=== PATIENT | female | born 1985 | race Caucasian/White ===

== ENCOUNTER 2020-02-20 15:27 | Observation (INO) | payer OTHER, SELFPAY ==
--- NOTE | 2020-02-20 15:27 | OBADM ---
This patient, Sharmin Aguero, admitted to the OB room OB Post 116 for observation. Patient/family oriented to hospital policies and general routines including ID bracelet, bed and alarms, visiting hours, pain management, procedures, bathroom and other care routines, personal items, smoking policy, room service/diet, and visiting hours. Patient/Family are encouraged to report perceived risks to care and to ask questions if they do not understand what they are told or what they should do.
[2020-02-20 15:48] VITALS: BP 117/56; PULSE 83
[2020-02-20 15:50] VITALS: RESP 18; TEMP 36.8
--- NOTE | 2020-02-20 15:53 | PC.NURSE ---
Dr. Silva called and given report on patient presentation and complaint of intermittent contractions. Orders received.
[2020-02-20 16:27] LABS: Add Urine Microscopic? YES; Appearance Urine Cloudy (Clear); Bacteria Urine Trace /hpf; Bilirubin Urine Negative (Negative); Blood Urine Negative (Negative); Color Urine Yellow (Yellow); Glucose Urine UA Negative (Negative); Ketones Urine 1+ mg/dL (Negative); Leukocyte Esterase Ur 2+ LEU/UL (Negative); Mucus Urine Rare /lpf; Nitrate Urine Negative (Negative); Protein Urine Negative (Negative); RBC Urine 0-2 /hpf (0-2); Specific Grav Ur 1.012 (1.001-1.035); Squamous Epithelial Cell Urine Occasional /hpf (Few); Urobilinogen Urine Negative mg/dL (<2.0); WBC Urine 0-3 /hpf
[2020-02-20 16:32] VITALS: BMI 24.2
--- NOTE | 2020-02-20 16:42 | PC.NURSE ---
Dr. Silva notified regarding increase in contraction pattern. Orders received.
[2020-02-20] MEDS: TERBUTALINE SULFATE 1 MG/ML VIAL 0.25 MG SUB-Q ×2 (17:15→17:45)
--- NOTE | 2020-02-20 17:26 | PC.NURSE ---
Dr. Silva updated regarding interventions performed. Orders received.
[2020-02-20 17:59] LABS: Fetal Fibronectin Negative
--- NOTE | 2020-02-20 18:51 | WPDOBADMIT ---
Obstetrics - Admit Note Admission Note: 34 y/o G1 at 32 weeks here with cramping. Noted to have contractions. Contractions have improved with terbutaline and PO fluids. No bleeding. Good movement. AVSS NST reactive TOCO: contractions every 3-6 min, now rare. ABD soft, nontender, gravid EXT nontender Cervix closed. UA 1+ketones FFN neg. A: IUP at 32 weeks with contractions, FFN neg. P: Home to f/u 2 days in office.
== END 2020-02-20 19:35 | disposition home or self-care (01) ==
PROVIDERS: Admitting Provider Obstetrics & Gynecology; Visit Provider Obstetrics & Gynecology
DX: O26.893 Other specified pregnancy related conditions, third trimester (principal); R10.9 Unspecified abdominal pain; Z3A.32 32 weeks gestation of pregnancy
CPT/HCPCS: 81001; 82731; 96372; G0378; G0379; J3105

== ENCOUNTER 2020-04-15 05:00 | Inpatient (IN) | payer OTHER, SELFPAY ==
[2020-04-15] VITALS (108 sets, daily range): BP systolic 61–191; BP diastolic 32–159; PULSE 58–187; RESP 16–20; TEMP 36.4–37.3; O2SAT 96–100; BMI 25.9
--- NOTE | 2020-04-15 05:40 | LDADM ---
This patient, Sharmin Aguero, was admitted to Labor/Delivery/Recovery 106 on 04/15/20 at 05:00. Plans for labor, pain management and were discussed with patient. Patient/family oriented to hospital policies and general routines including ID bracelet, bed and alarms, visiting hours, pain management, procedures, bathroom and other care routines, personal items, smoking policy, room service/diet and guest tray routines, security routines, and visiting hours. Patient/Family are encouraged to report perceived risks to care and to ask questions if they do not understand what they are told or what they should do. See OBIX for further documentation.
[2020-04-15 05:58] LABS: Basophils Percent Auto 0.2 % (0.2-1.2); Eosinophils Absolute Auto 0.1 K/mm3 (0-0.3); Eosinophils Percent Auto 0.4 % (0-4.4); Hematocrit 38.4 % (37.0-47.0); Hemoglobin 13.3 g/dL (12.0-15.0); Immature Granulocyte Absolute 0.12 K/mm3 (0.00-0.031); Lymphocytes Absolute Auto 1.67 K/mm3 (0.9-3.2); Lymphocytes Percent Auto 13.6 % (18.3-44.2); Mean Corpuscular HGB Conc 34.6 g/dl (32-36); Mean Corpuscular Hemoglobin 31.2 pg (26-34); Mean Corpuscular Volume 90.1 fl (80-100); Mean Platelet Volume 9.7 fl (7.4-10.4); Monocytes Absolute Auto 0.9 K/mm3 (0.1-0.6); Neutrophils Absolute Auto 9.6 K/mm3 (1.3-6.7); Neutrophils Percent Auto 77.8 % (45.5-73.1); Platelet Count Result 183 k/mm3 (150-375); Red Blood Count 4.26 M/mm3 (4.2-5.4); Red Cell Distribution Width 13.3 % (11.5-14.5); White Blood Count 12.3 K/mm3 (4.5-10.0)
[2020-04-15] MEDS: OXYTOCIN 30 UNITS/NS 500 ML 30 UNITS/500 ML BAG 6 UNITS IV CONT (06:09)
[2020-04-15] MEDS: LACTATED RINGERS 1,000 ML 125 ML IV CONT ×2 (06:09→16:17)
--- NOTE | 2020-04-15 09:00 | WPDOBADMIT ---
Obstetrics - Admit Note Admission Note: record reviewed. Additions to the history and/or subsequent changes in the physical findings follow. 35 y/o G1 at 40 3/7 weeks here for scheduled induction of labor. EFW 6#8oz 5 weeks ago. GBS neg. IVF with transfer of care in second trimester. Has vaginismus, and exams have been challenging. Paradoxically, she does not desire any pain control during labor. contractions were treated with Procardia, but she has been off that medication for several weeks now. AVSS NST reactive TOCO: contractions every 2-4 min ABD soft, nontender, gravid, vertex EXT nontender Cervix 2-3/80/-1. AROM with clear fluid. IUPC placed. A: IUP at 40 3/7 weeks with EFW around 9 lbs, here desiring induction of labor. complicated by vaginismus. P: Oxytocin. Anticipate .
--- NOTE | 2020-04-15 09:59 | WPDANESEPP ---
Anes - Eval Pre Procedure Procedure: Labor epidural Date/Time: 04/15/20 09:59 Surgeon: Shira Preop Diagnosis: pain during labor Pre Op Diagnosis: Induction of Labor Patient Data Age: 35 Gender: F Height: 1.68 m Weight: 73 kg Last Vital Signs Temp 36.6 C 04/15/20 05:28 Pulse 85 04/15/20 09:01 BP 100/66 04/15/20 09:01 Allergies Allergy/AdvReac Type Severity Reaction Status Date / Time No Known Drug Allergies Allergy Other Verified 02/20/20 16:30 Home Medications Medication Instructions Recorded Confirmed Type Vitamin 1 tablet PO DAILY 02/20/20 03/16/20 History cholecalciferol (vitamin D3) 25 mcg PO DAILY 03/16/20 03/16/20 History [Vitamin D3] Laboratory Tests 04/15/20 04/15/20 04/15/20 05:52 05:52 05:52 WBC 12.3 K/mm3 H K/mm3 (4.5-10.0) RBC 4.26 M/mm3 M/mm3 (4.2-5.4) Hgb 13.3 g/dL g/dL (12.0-15.0) Hct 38.4 % % (37.0-47.0) MCV 90.1 fl fl (80-100) MCH 31.2 pg pg (26-34) MCHC 34.6 g/dl g/dl (32-36) RDW 13.3 % % (11.5-14.5) Plt Count 183 k/mm3 k/mm3 (150-375) MPV 9.7 fl fl (7.4-10.4) Immature Gran % (Auto) 1.0 % H % (0-0.5) Neut % (Auto) 77.8 % H % (45.5-73.1) Lymph % (Auto) 13.6 % L % (18.3-44.2) [place] % (Auto) 7.0 % % (2.6-8.5) Eos % (Auto) 0.4 % % (0-4.4) Baso % (Auto) 0.2 % % (0.2-1.2) Lymph # (Auto) 1.67 K/mm3 K/mm3 (0.9-3.2) [place] # (Auto) 0.9 K/mm3 H K/mm3 (0.1-0.6) Eos # (Auto) 0.1 K/mm3 K/mm3 (0-0.3) Baso # (Auto) 0.0 K/mm3 K/mm3 (0.0-0.1) Abs Immat Gran (auto) 0.12 K/mm3 H K/mm3 (0.00-0.031) Absolute Neuts (auto) 9.6 K/mm3 H K/mm3 (1.3-6.7) Absolute Nucleated RBC 0.0 K/mm3 K/mm3 (0.0-0.012) Nucleated RBC % 0.0 % % (0.0-0.2) RPR Pending Blood Type O Positive Antibody Screen Negative Patient hx anesthesia problems: none Family hx anesthesia problems: none PMFSH Family History Family History Father Polio Father Heart disease Social History Social History Smoking status: Never smoker Second hand tobacco smoke exposure: No Substance use: never Gender identity (if verbalized by the patient): Female Spiritual care concerns: No Exam Day of Procedure 04/15/20 09:59
[2020-04-15] MEDS: fentaNYL CITRATE INJ (*CRX) 100 MCG/2 ML VIAL 50 MCG IV PUSH (16:32)
[2020-04-15] MEDS: ONDANSETRON INJ 4 MG/2 ML VIAL IV PUSH (17:28)
--- NOTE | 2020-04-15 19:06 | PM.OBPNLAB ---
Pain Control Date/time seen: 04/15/20 19:06 Comments: Good pain control with epidural. Pelvic Exam Dilation (cm): 6 Effacement (%): 90 station: 0 Contractions Contraction frequency: 3 Status Comments: NST reactive TOCO: contractions every 3-6 min Assessment and Plan Pitocin rate (mU/min): 3 Comments: Continue oxytocin.
--- NOTE | 2020-04-15 20:10 | PM.OBPNLAB ---
Pain Control Date/time seen: 04/15/20 20:10 Comments: Called to see patient after a 7 min fhr deceleration. Pelvic Exam Dilation (cm): 7 Effacement (%): 90 station: 0 Status Comments: NST: fhr has recovered. Now with moderate variability and no decelerations. TOCO: irregular contractions Assessment and Plan Pitocin rate (mU/min): 0 Comments: A: IUP at 40 3/7 weeks with nonreassuring status remote from delivery P: I offered primary delivery. She understands risks of surgery to include risks of anesthesia, risks of pain, infection, bleeding, blood products, thromboembolic phenomena and damage to adjacent structures such as bowel, bladder, ureters, blood vessels and nerves. She understands all these risks and elects to proceed with surgery.
--- NOTE | 2020-04-15 20:16 | PM.IMHP ---
H&P: HPI History of Present Illness Date/Time: 04/15/20 20:16 Chief complaint: Induction of Labor Narrative: 35 y/o G1 at 40 3/7 weeks here for induction of labor. complicated by vaginismus. Has had oxytocin induction through the day today with slow progress. Now comfortable with epidural. Had a FHR deceleration for 7 min, responded to resuscitation efforts, including one dose of terbutaline 0.25 mg sc. Now would like to proceed with due to nonreassuring status remote from delivery. Review of Systems Review of Systems: All systems reviewed & are unremarkable except as noted in HPI and below PMFSH Past Medical History Medical History Anxiety GERD (gastroesophageal reflux disease) Vaginismus Surgical History Surgical History History of tonsillectomy Family History Family History Father Polio Father Heart disease Social History Social History Smoking status: Never smoker Second hand tobacco smoke exposure: No Substance use: never Gender identity (if verbalized by the patient): Female Spiritual care concerns: No Meds Home Medications and Allergies Home Medications Medication Instructions Recorded Confirmed Type Vitamin 1 tablet PO DAILY 02/20/20 03/16/20 History cholecalciferol (vitamin D3) 25 mcg PO DAILY 03/16/20 03/16/20 History [Vitamin D3] Allergies Allergy/AdvReac Type Severity Reaction Status Date / Time No Known Drug Allergies Allergy Other Verified 02/20/20 16:30 Vital Signs Vital Signs - 24 hr 04/15/20 05:28 04/15/20 05:55 04/15/20 06:01 Temperature 36.6 C Pulse Rate 82 77 Blood Pressure 107/54 L 103/60 Pulse Oximetry 04/15/20 06:31 04/15/20 07:01 04/15/20 08:01 Temperature Pulse Rate 85 81 80 Blood Pressure 97/71 L 104/67 117/68 Pulse Oximetry 04/15/20 08:31 04/15/20 09:01 04/15/20 10:16 Temperature Pulse Rate 88 85 83 Blood Pressure 103/65 100/66 117/72 Pulse Oximetry 04/15/20 11:30 04/15/20 13:11 04/15/20 13:16 Temperature 36.4 C L Pulse Rate 77 73 Blood Pressure 99/59 L 96/57 L Pulse Oximetry 04/15/20 14:01 04/15/20 14:28 04/15/20 14:31 Temperature Pulse Rate 85 90 85 Blood Pressure 116/81 118/76 93/76 L Pulse Oximetry 04/15/20 15:16 04/15/20 15:30 04/15/20 16:02 Temperature 36.7 C Pulse Rate 104 H 80 Blood Pressure 97/53 L 61/32 L Pulse Oximetry 04/15/20 16:29 04/15/20 16:34 04/15/20 16:35 Temperature Pulse Rate 92 Blood Pressure 104/66 Pulse Oximetry 100 100 04/15/20 16:37 04/15/20 16:39 04/15/20 16:41 Temperature Pulse Rate 163 H 134 H Blood Pressure 103/79 107/71 Pulse Oximetry 100 04/15/20 16:43 04/15/20 16:44 04/15/20 16:47 Temperature Pulse Rate 88 95 Blood Pressure 114/70 105/55 L Pulse Oximetry 100 04/15/20 16:49 04/15/20 16:51 04/15/20 16:54 Temperature Pulse Rate 76 Blood Pressure 115/71 Pulse Oximetry 100 100 04/15/20 16:59 04/15/20 17:01 04/15/20 17:04 Temperature Pulse Rate 187 H Blood Pressure 110/71 Pulse Oximetry 100 100 04/15/20 17:09 04/15/20 17:11 04/15/20 17:14 Temperature Pulse Rate 83 Blood Pressure 115/70 Pulse Oximetry 100 99 04/15/20 17:19 04/15/20 17:21 04/15/20 17:24 Temperature Pulse Rate 80 Blood Pressure 104/64 Pulse Oximetry 99 100 04/15/20 17:29 04/15/20 17:31 04/15/20 17:34 Temperature Pulse Rate 176 H Blood Pressure 96/80 L Pulse Oximetry 98 99 04/15/20 17:39 04/15/20 17:40 04/15/20 17:41 Temperature 36.7 C Pulse Rate 70 Blood Pressure 107/70 Pulse Oximetry 99 04/15/20 17:44 04/15/20 17:49 04/15/20 17:54 Temperature Pulse Rate Blood Pressure Puls
--- NOTE | 2020-04-15 20:23 | WPDANESEFPP ---
Anes - Eval Final PreProcedure Day of Procedure 04/15/20 20:23 Patient weight: overweight Heart: regular rate and rhythm Lungs: clear to auscultation and normal air movement Airway: Mallampati scale class II Neurological: alert and oriented Last oral intake: >/= 8 hours ASA classification: II Emergent: yes Anesthetic plan: proceed Anesthesia type and monitoring: regional epidural and standard monitoring Informed Consent: The patient's anesthetic plan and its attendant risks and benefits were discussed with the patient/family/POA. Questions were solicited and answers provided to the satisfaction of the patient/family/POA.
--- NOTE | 2020-04-15 21:22 | PM.OBPRVD ---
OB - Delivery Note Procedure Delivery date: 04/15/20 Procedure: Procedures Operation Date: 04/15/20 20:30 <No data on this case meets the specified criteria> Primary low transverse delivery Induction method: AROM and per pitocin protocol Delivery monitor: external FHT, external uterine, internal FHT and internal uterine Route of delivery: Indication for instrumentation: nonreassuring FHR tracing Specimen: Yes (cord blood, placenta) Quantitative Blood Loss: 755 Anesthesia type: Epidural Disposition: PACU Complications: None Narrative: The patient was taken to the operating room where she was prepared and draped in the usual sterile fashion in dorsal supine position with a leftward tilt. She received cefazolin preoperatively. Epidural anesthesia was found to be adequate. A Pfannenstiel skin incision was made and carried through to the underlying layer of the fascia. The fascia was incised in the midline and the incision was extended laterally. The fascia was dissected free of the underlying rectus muscles. The rectus muscles were in the midline. The peritoneum was identified, tented up and entered sharply. The peritoneal incision was extended superiorly and inferiorly with good visualization of the bladder. The bladder blade was placed. The vesicouterine peritoneum was identified, tented up and entered sharply. The incision was extended laterally and the bladder flap was developed. The bladder blade was replaced. The uterus was then incised sharply in a transverse fashion along the lower uterine segment. Thickly meconium stained fluid was encountered. The incision was extended laterally. The infant's head was delivered atraumatically to the sterile field, followed by the body. The nose and mouth were bulb suctioned. After a delay, the cord was clamped and cut. The was handed off the field. Cord blood was collected. The placenta was removed manually and was passed off the field. The uterus was exteriorized and cleared of all clots and debris. The uterine incision was reapproximated using 0 Monocryl in a running, locked fashion. A second, imbricating layer of the same suture was placed. Excellent hemostasis resulted as did excellent reapproximation of the normal anatomy. The uterus was returned the abdomen. The pelvis was irrigated copiously with warmed normal saline. Hemaderm was applied to the bladder flap. Rigorous hemostasis was assured. The fascial layer was reapproximated using 0 Vicryl in a running fashion. The skin was closed with a running, subcuticular stitch of 4 0 Vicryl. Dermaflex was applied externally. Sponge, lap, needle and instrument counts were correct. The patient was taken to the recovery room in stable condition. The went to the nursery in stable condition. I was present and scrubbed the entire procedure. [place] Baby Date of : 04/15/20 Time of : 20:48 Weeks of gestation at delivery: 40 Infant gender: Male Weight (pounds): 8 Weight (ounces): 13 presentation: vertex Placenta delivery description: Manual Removal and Abnormal Configuration (accessory placental lobule) cord vessel description: 3 Vessels score one minute: 6 score five minutes: 9
--- NOTE | 2020-04-15 21:27 | P.DS_ITS ---
DS: Admitting Diagnosis Admitting Diagnosis Admitting Diagnosis: Induction of Labor DS: Discharge Diagnosis Discharge Diagnosis (1) Status post primary low transverse section: Code(s): Z98.891 - History of uterine scar from previous surgery Status: Acute OB - DS: Summary OB Procedures : None OB Procedures Intrapartum: OB Procedures: : None Peripartum Data Procedures: Procedures Operation Date: 04/15/20 20:30 <No data on this case meets the specified criteria> Primary LTCS DS: Data Data Completed and Pending Labs on day of discharge: Labs from last 24 hours 04/15/20 04/15/20 04/15/20 05:52 05:52 05:52 WBC 12.3 H RBC 4.26 Hgb 13.3 Hct 38.4 MCV 90.1 MCH 31.2 MCHC 34.6 RDW 13.3 Plt Count 183 MPV 9.7 Immature Gran % (Auto) 1.0 H Neut % (Auto) 77.8 H Lymph % (Auto) 13.6 L [place] % (Auto) 7.0 Eos % (Auto) 0.4 Baso % (Auto) 0.2 Lymph # (Auto) 1.67 [place] # (Auto) 0.9 H Eos # (Auto) 0.1 Baso # (Auto) 0.0 Abs Immat Gran (auto) 0.12 H Absolute Neuts (auto) 9.6 H Absolute Nucleated RBC 0.0 Nucleated RBC % 0.0 RPR Pending Blood Type O Positive Antibody Screen Negative Discharge Plan Discharge Attending physician on discharge: Brian Silva Discharging Clinician: Brain Silva Patient Disposition: Home, Self-Care Activity: may shower, may drive after 2 weeks and pelvic rest Diet: regular Wound Care Instructions: incision open to air Discharge Instructions: Call or return if temperature above 100.4? F, increased abdominal pain, increased vaginal bleeding or any new problems. Stand Alone Forms: General Discharge Information Follow-up/Referrals: Brian Silva MD [Physician] - 4 Weeks Discharge Medications: New ibuprofen 600 mg tablet 600 mg PO Q6H PRN (Reason: cramps) Qty: 30 RF: 0 ferrous sulfate 325 mg (65 mg iron) tablet 325 mg PO DAILY Qty: 30 RF: 0 hydrocodone-acetaminophen [[place]] 5-325 mg tablet 1 - 2 tablet PO Q6H PRN (Reason: pain) Qty: 30 RF: 0 No Action Vitamin 27 mg iron- 800 mcg Tablet 1 tablet PO DAILY RF: 0 cholecalciferol (vitamin D3) [Vitamin D3] 25 mcg (1,000 unit) Capsule 25 mcg PO DAILY RF: 0 Date of admission: 04/15/20 05:00 Primary Care Provider: Iban,Kathi Admitting Provider: Brian Silva Attending physician on admission: Brian Silva Condition: Stable
[2020-04-15] MEDS: MORPHINE SULFATE (*CRX) 2 MG/ML INJ IV PUSH ×2 (23:01→23:47)
--- NOTE | 2020-04-15 23:57 | OBPPTRN ---
Patient transferred to post room #290 via stretcher with infant in crib. Support person present. Oriented to unit, room, information board, rooming in, admission packet and security measures. Patient verbalizes understanding.
[2020-04-16] VITALS (11 sets, daily range): BP systolic 93–123; BP diastolic 48–71; PULSE 87–103; RESP 14–20; TEMP 36.4–37.2; O2SAT 98–100
[2020-04-16] MEDS: DEXTROSE 5%/0.45% SOD CHL 1,000 ML 125 ML IV CONT (03:27)
[2020-04-16] MEDS: IBUPROFEN 600 MG TABLET PO ×3 (04:49→17:43)
[2020-04-16] MEDS: HYDROcodone/acetaminophen (*CRX) 5-325 MG TABLET 1 TAB PO ×2 (04:49→07:51)
[2020-04-16] MEDS: SIMETHICONE 80 MG TAB.CHEW PO ×3 (04:52→17:44)
[2020-04-16 05:07] LABS: Basophils Percent Auto 0.2 % (0.2-1.2); Eosinophils Absolute Auto 0.1 K/mm3 (0-0.3); Eosinophils Percent Auto 0.3 % (0-4.4); Hemoglobin 9.7 g/dL (12.0-15.0); Immature Granulocyte Absolute 0.13 K/mm3 (0.00-0.031); Immature Granulocyte Percent A 0.7 % (0-0.5); Lymphocytes Percent Auto 6.1 % (18.3-44.2); Mean Corpuscular HGB Conc 33.4 g/dl (32-36); Mean Corpuscular Hemoglobin 30.8 pg (26-34); Mean Corpuscular Volume 92.1 fl (80-100); Mean Platelet Volume 9.7 fl (7.4-10.4); Monocytes Percent Auto 5.2 % (2.6-8.5); Neutrophils Absolute Auto 17.3 K/mm3 (1.3-6.7); Neutrophils Percent Auto 87.5 % (45.5-73.1); Platelet Count Result 147 k/mm3 (150-375); Red Blood Count 3.15 M/mm3 (4.2-5.4); Red Cell Distribution Width 13.5 % (11.5-14.5); White Blood Count 19.7 K/mm3 (4.5-10.0)
--- NOTE | 2020-04-16 07:45 | PC.NURSE ---
Edidural discontinued. Pt. tolerated well. Tip noted, bandaid applied.
[2020-04-16] MEDS: POLYSACCHARIDE IRON COMPLEX 150 MG CAPSULE PO ×2 (07:50→17:42)
[2020-04-16] MEDS: MULTIVIT/MIN/PREN/FOL AC/IRON TABLET 1 TAB PO (07:50)
[2020-04-16] MEDS: DOCUSATE SODIUM 100 MG CAPSULE PO ×2 (07:51→17:42)
--- NOTE | 2020-04-16 07:53 | WPDANLDNPN2 ---
Anes-Prog Note L&D-Neuraxial Date/Time: 04/16/20 07:53 Neuraxial medications: epidural PF morphine Opiod-related complaints: none Patient feedback: Patient satisfied with post-operative pain management.
--- NOTE | 2020-04-16 07:53 | WPDANLDPN2 ---
Anes-Prog Note L&D Date/Time: 04/16/20 07:53 Comfortable throughout: labor, delivery and section Neuraxial method: epidural Epidural/Spinal procedure site: clean & non-tender Neuro status: Neuro function grossly intact. Cardiovascular status: normal Respiratory status: normal Airway patency: baseline Mental status: baseline Post-Op hydration status: normal Vital Signs: Last Vital Signs Temp 36.9 C 04/16/20 04:05 Pulse 88 04/16/20 04:05 Resp 16 04/16/20 04:05 BP 105/61 04/16/20 04:05 Pulse Ox 98 04/16/20 02:30 Pain score (VAS): 0 I/O: Intake & Output 04/15/20 04/15/20 04/16/20 15:59 23:59 07:59 Intake Total 1000 300 Output Total 100 310 Balance 1000 -100 -10 Post-procedural complaints: none Patient feedback: Patient satisfied with anesthetic care.
[2020-04-16 10:14] LABS: Rapid Plasma Reagin Non-Reactive (NonReactive)
[2020-04-16] MEDS: HYDROcodone/acetaminophen (*CRX) 10-325 MG TABLET 1 TAB PO ×2 (11:08→17:43)
--- NOTE | 2020-04-16 13:44 | PM.OBPNVD ---
OB - PN: Subj Subjective Date/time seen: 04/16/20 13:44 Narrative: Pain OK. Tolerating diet. Would like circumcision for son. She thinks her anxiety is stable and would not like any treatment at this time. She does not feel sad. No suicidal or homicidal ideation. OB - PN: Obj Data Labs CBC & Chem 7: 04/16/20 04:43 Labs: Laboratory Results - last 24 hr 04/15/20 04/16/20 05:52 04:43 WBC 19.7 H RBC 3.15 L Hgb 9.7 L D Hct 29.0 L MCV 92.1 MCH 30.8 MCHC 33.4 RDW 13.5 Plt Count 147 L MPV 9.7 Immature Gran % (Auto) 0.7 H Neut % (Auto) 87.5 H Lymph % (Auto) 6.[address] [place] % (Auto) 5.2 Eos % (Auto) 0.3 Baso % (Auto) 0.2 Lymph # (Auto) 1.20 [place] # (Auto) 1.0 H Eos # (Auto) 0.1 Baso # (Auto) 0.0 Abs Immat Gran (auto) 0.13 H Absolute Neuts (auto) 17.3 H Absolute Nucleated RBC 0.0 Nucleated RBC % 0.0 RPR Non-reactive OB - PN A/P Plan Comments: A: POD#1, doing well. P: Routine care. Reviewed circumcision. Exam Narrative: Exam Narrative: AVSS I/O OK ABD soft, nontender, fundus firm. Incision c/d/i. EXT nontender
[2020-04-17] MEDS: HYDROcodone/acetaminophen (*CRX) 10-325 MG TABLET 1 TAB PO ×5 (00:11→19:56)
[2020-04-17] MEDS: IBUPROFEN 600 MG TABLET PO ×4 (00:11→19:57)
[2020-04-17] MEDS: SIMETHICONE 80 MG TAB.CHEW PO ×4 (00:11→20:36)
--- NOTE | 2020-04-17 04:00 | PC.NURSE ---
RN started pt on 15 program. has had minimal interest in latching and pt has expressed concerns about milk supply. RN and pt discussed the benefits of -, and pt verbalized understanding of use of pump.
[2020-04-17] MEDS: MULTIVIT/MIN/PREN/FOL AC/IRON TABLET 1 TAB PO (07:06)
[2020-04-17] MEDS: POLYSACCHARIDE IRON COMPLEX 150 MG CAPSULE PO (07:07)
[2020-04-17] MEDS: LANOLIN (LANSINOH) 7.5 GM CREAM 1 APPLIC TOPICAL (07:08)
[2020-04-17 08:20] VITALS: BP 100/55; PULSE 100; RESP 16; TEMP 36.5; O2SAT 100
--- NOTE | 2020-04-17 08:28 | PM.OBPNVD ---
OB - PN: Subj Subjective Date/time seen: 04/17/20 08:28 Narrative: Pain OK. Tolerating diet. OB - PN: Obj Data Labs CBC & Chem 7: 04/16/20 04:43 Labs: Laboratory Results - last 24 hr 04/15/20 05:52 RPR Non-reactive OB - PN A/P Plan Comments: A: POD#2, doing well. P: Routine care. Exam Narrative: Exam Narrative: AVSS I/O OK ABD soft, nontender, fundus firm. Incision c/d/i. EXT nontender
[2020-04-17] MEDS: DOCUSATE SODIUM 100 MG CAPSULE PO (17:42)
[2020-04-17 20:00] VITALS: BP 103/52; PULSE 97; RESP 18; TEMP 36.8; O2SAT 100
[2020-04-17] MEDS: WITCH HAZEL 40 PADS 1 PAD (21:59)
[2020-04-17] MEDS: BENZOCAINE 20% AER SPR (*SP) 56 GM CAN 1 SPRAY (21:59)
[2020-04-17] MEDS: HYDROcodone/acetaminophen (*CRX) 5-325 MG TABLET 1 TAB PO (23:35)
[2020-04-18] MEDS: SIMETHICONE 80 MG TAB.CHEW PO ×5 (03:17→20:09)
[2020-04-18] MEDS: IBUPROFEN 600 MG TABLET PO ×4 (03:18→22:33)
[2020-04-18] MEDS: HYDROcodone/acetaminophen (*CRX) 5-325 MG TABLET 1 TAB PO ×5 (03:18→20:07)
--- NOTE | 2020-04-18 07:30 | PC.NURSE ---
Mother called out for assist with feeding, reporting difficulties with latch. Mother states is more awake since last evening, mother continues to supplement after all feedings and will pump. Mother voices concerns she is not pumping more than a few drops, assured mother this is normal and milk should transition in within the next few days. Parents feel is fussy after supplement and continues to act hungry. Suggested to increase supplement to 30 mls and to wake to feed every 4 hours and increase pumping to 20 minutes. Reviewed infant feeding cues, frequencies, duration of feedings, feeding elimination flow sheet, and signs of adequate intake. Demonstrated stimulation techniques to wake for feeding. Assisted with to breast. Reviewed positioning/alignment in cross cradle, holding breast in U hold and guided asymmetrical latch on. Several attempts before was able to latch correctly. nursed eagerly with steady draws for short bursts followed with long pausing, occasional swallowing noted. Reviewed signs of a correct latch, effective nursing and suck swallow ratio. was able to maintain latch without discomfort to mother. Nipple care reviewed. Infant is more awake and eagerly feeding than previous day. Suggested to stimulate while feeding to keep infant awake and nursing effectively for increased intake and to assist with maintaining deep latch. Demonstrated how to adjust latch more deeply while feeding. Instructed mother to call out for RN assistance if she is unable to latch infant for feeding or she has discomfort with nursing. Instructed feeding should be initiated three hours from start of last feeding or if feeding cues are noted before. Mother voiced understanding of information shared.
[2020-04-18] MEDS: DOCUSATE SODIUM 100 MG CAPSULE PO ×2 (08:49→17:40)
[2020-04-18] MEDS: MULTIVIT/MIN/PREN/FOL AC/IRON TABLET 1 TAB PO (08:49)
[2020-04-18] MEDS: POLYSACCHARIDE IRON COMPLEX 150 MG CAPSULE PO ×2 (08:49→17:40)
[2020-04-18 08:50] VITALS: BP 90/57; PULSE 98; RESP 18; TEMP 36.3; O2SAT 100
--- NOTE | 2020-04-18 12:20 | PM.OBPNVD ---
OB - PN: Subj Subjective Date/time seen: 04/18/20 12:20 Narrative: Pain OK. Tolerating diet. OB - PN: Obj Data Labs CBC & Chem 7: 04/16/20 04:43 OB - PN A/P Plan Comments: A: POD#3, doing well. P: Plan home tomorrow. Exam Narrative: Exam Narrative: AVSS ABD soft, nontender, fundus firm. Incision c/d/i. EXT nontender
[2020-04-18 19:40] VITALS: BP 112/61; PULSE 65; RESP 18; TEMP 36.8; O2SAT 100
[2020-04-18 23:15] VITALS: BP 126/64; PULSE 117; RESP 18; TEMP 36.7; O2SAT 99
[2020-04-19] MEDS: HYDROcodone/acetaminophen (*CRX) 5-325 MG TABLET 1 TAB PO (00:30)
[2020-04-19] MEDS: IBUPROFEN 600 MG TABLET PO ×2 (05:43→12:37)
[2020-04-19] MEDS: SIMETHICONE 80 MG TAB.CHEW PO ×3 (05:44→12:45)
[2020-04-19 08:05] VITALS: BP 101/63; PULSE 109; RESP 16; TEMP 37.6; O2SAT 100
--- NOTE | 2020-04-19 08:12 | WPDANLDPN2 ---
Anes-Prog Note L&D Date/Time: 04/19/20 08:12 Comfortable throughout: labor, delivery and section Neuraxial method: epidural Epidural/Spinal procedure site: clean & non-tender Neuro status: Neuro function grossly intact. Cardiovascular status: normal Respiratory status: normal Airway patency: baseline Mental status: baseline Post-Op hydration status: normal Vital Signs: Last Vital Signs Temp 36.7 C 04/18/20 23:15 Pulse 117 H 04/18/20 23:15 Resp 18 04/18/20 23:15 BP 126/64 04/18/20 23:15 Pulse Ox 99 04/18/20 23:15 Pain score (VAS): 3 I/O: Intake & Output 04/18/20 04/19/20 04/19/20 23:59 07:59 15:59 Intake Total 240 Balance 240 Post-procedural complaints: none Patient feedback: Patient satisfied with anesthetic care.
--- NOTE | 2020-04-19 08:55 | PC.NURSE ---
Patient viewed the discharge video Mother & Baby Care, The First Two Weeks . Patient was given the opportunity and encouraged to ask questions. Patient verbalized understanding of information shared and has been given the mother/baby guide for home reference.
[2020-04-19] MEDS: DOCUSATE SODIUM 100 MG CAPSULE PO (09:13)
[2020-04-19] MEDS: MULTIVIT/MIN/PREN/FOL AC/IRON TABLET 1 TAB PO (09:13)
[2020-04-19] MEDS: POLYSACCHARIDE IRON COMPLEX 150 MG CAPSULE PO (09:13)
--- NOTE | 2020-04-19 09:15 | PC.NURSE ---
Mother is able to independently latch infant with appropriate positioning/alignment. She denies any nipple discomfort, is feeding as required and waking to feed if needed. Mother continues to supplement after all feedings and will follow with pumping. Mother is pumping without difficulties or discomfort and is not pumping 2-3 mls per session. Advised to francy EBM as part of supplement. is currently meeting outcomes for weight, output, jaundice and feeding frequencies. Mother states she feels confident to continue current feeding plan at home. Reviewed transition to breast milk, signs of adequate intake, and engorgement/relief. Instructed to call ICP if intake/output less than required. Reviewed regular medications mother is taking. Information provided per Maricel. Discussed when to increase supplementation and signs infant may be ready to decrease supplement. Advised not to discontinue supplement until seen by follow up RN or ICP advises. Reviewed community resources on the [facility] website and in the Mom/Baby guide. Information on outpatient services provided. Mother has no further questions at this time.
[2020-04-22 09:29] VITALS: BP 100/58; PULSE 104; RESP 20; TEMP 36.5; O2SAT 100
--- NOTE | 2020-05-16 17:11 | PC.NURSE ---
Patient called stating that she was having trouble with sore nipples and getting a deep latch. Mom states is gaining weight well, just had an appt with the b2b sales professional and having 6-8 voids and stools per day. Appt made for 1--21 to have latch assessed.
== END 2020-04-19 14:18 | disposition home or self-care (01) | DRG 788 ==
LOC: ANHLDR 21:29 → ANHOB2 04-16 00:15
PROVIDERS: Admitting Provider Obstetrics & Gynecology; PCP Physician Assistant; Visit Provider Obstetrics & Gynecology
PROC: 10D00Z1 Extraction of Products of Conception, Low, Open Approach (ICD-10-PCS; CPT 59514; principal; 2020-04-15 20:30)
DX: O76 Abnormality in fetal heart rate and rhythm complicating labor and delivery (principal); O43.193 Other malformation of placenta, third trimester; N94.2 Vaginismus; O77.0 Labor and delivery complicated by meconium in amniotic fluid; Z3A.40 40 weeks gestation of pregnancy; Z37.0 Single live birth
CPT/HCPCS: 36415; 85025; 86592; 86850; 86900; 86901; 88307; A9270; J0131; J1200; J1885; J2270; J2274; J2370; J2405; J2590; J2795; J3010; J7120

== ENCOUNTER 2020-05-20 11:20 | Outpatient (RCR) | payer OTHER, SELFPAY ==
--- NOTE | 2020-05-21 13:27 | PC.NURSE ---
05/20/2020 1120 pt seen for LC consult; mother expresses help with latch on issues for baby, and sore nipples; also concern that she feels her milk supply is less in the evening, as baby is more fussy from about 8pm to 2 a.m.; Pt delivered baby concepción Rodrigues on 04/15/2020; she had a c/s after laboring, baby's heart rate dropped. Also reports difficult delivery of head even with the . Baby is now 5 weeks of age; he appears well cared for, is active and alert today when undressed for feeding. Baby was last seen by Dr. Reyes on 05/15/2020; exam and weight at that time, one month old, normal and appropriate. Mother reports that at the one week check up baby's weight was not where wanted it, and then they increased breast feeding and did supplement; Mother has been doing some pumping. Parents report 8 breast feedings in the last 24 hrs, and feedings are 23-25 minutes, 14 wet diapers and 3 yellow seedy stools. They voice concern that baby is very fussy in the evening. They feed, hold, walk with him; they report he is gassy. Mother reports sore nipples, and wants help with latching. Baby put to breast in cross-cradle position; reviewed with mother [id number] latch on technique and how to assess for deep latch; mother had latch on pain initially, but reports it eased quickly. She reports the latch as deeper than what she is able to get at home. Mother taught how to adjust infant to deeper latch once on the breast. Baby demonstrated rhythmic vigorous sucking and swallowing. After 10 minutes he fell asleep, and also had a yellow seedy stool. Baby weighed after the first side, 4856 gms Baby nursed second side in football position, again latching easily with apparent deep latch, reported by mom as comfortable, and demonstrated effective breast feeding, again for 10 minutes; baby had another large yellow seedy stool, and wet diaper. Mother reported remembering learning some of the latch on techniques while in the hospital, and appreciated the teaching today. Weight after second side, 4871. Baby was awake, and very contented after the feeding. Plan: mother will continue to breast feeding, working on latch for deeper more comfortable latch. Suggested mother do some pumping after breast feedings, especially in afternoon and evening to attempt to increase her milk supply at that time. Advised oK to supplement at any feeding that he seems to still be hungry, using pumped breast milk and/or formula. Suggested if baby's marked fussiness in the evening continues, to call Dr Reyes and discuss. Suggested weight check for baby next week, to reassure mother that baby is gaining appropriately. Mother verbalized understanding of all information shared and agreed with the plan. She was encouraged to call LC again as needed.
--- NOTE | 2020-05-21 14:03 | PC.NURSE ---
05/21/2020 Phone call to mother. She reports still continued difficulty with latching. She was not tearful, but stress still sensed in mom. She states last evening she breast fed and gave formula and he seemed to be a little less fussy last evening. Mother verbalized desire to keep going with breast feeding. She will continue with the plan from yesterday. Nurse did suggest referring to Mother-baby Guide, and trying side-lying position to see if latch on might be easier. Parents did report that they will be seeing PT for baby because of decreased ROM since delivery. Yesterday baby seemed comfortable in cross cradle on Mother's L side, and football on mother's R side. Pt will call as needed to office.
== END 2020-07-22 08:38 | disposition home or self-care (01) ==
LOC: ANHOBOP 11:20
PROVIDERS: PCP Pediatrics; Visit Provider Pediatrics
DX: Z39.1 Encounter for care and examination of lactating mother (principal)
CPT/HCPCS: 99213; G0463

== ENCOUNTER 2022-01-27 09:07 | Observation (INO) | payer BC, SELFPAY ==
[2022-01-27] VITALS (7 sets, daily range): BP systolic 90–105; BP diastolic 18–68; PULSE 97–105; TEMP 36.6; O2SAT 100; BMI 25.4
[2022-01-27 09:45] LABS: Appearance Urine Clear (Clear); Bilirubin Urine Negative (Negative); Blood Urine Negative (Negative); Color Urine Yellow (Yellow); Glucose Urine UA Negative (Negative); Ketones Urine 4+ mg/dL (Negative); Leukocyte Esterase Ur Negative LEU/UL (NEGATIVE); Nitrate Urine Negative (Negative); Protein Urine Negative (Negative); Specific Grav Ur 1.015 (1.001-1.035); Urobilinogen Urine 0.2 mg/dL (<2.0); pH Urine 6.5 (5.0-9.0)
[2022-01-27 09:50] LABS: Bacteria Urine Trace /hpf; RBC Urine 0-2 /hpf (0-2); Squamous Epithelial Cell Urine Occasional /hpf (Few); WBC Urine 0-3 /hpf (0-3)
[2022-01-27 09:52] LABS: Add Urine Microscopic? YES
--- NOTE | 2022-01-27 10:03 | PC.NURSE ---
Dr Silva notified of adm c/o contractions, exposure to covid and fever and contractions last night. Orders received.
[2022-01-27] MEDS: DEXTROSE 5%/LACTATED RINGERS 1,000 ML 999 ML IV CONT (10:50)
[2022-01-27 11:02] LABS: Basophils Percent Auto 0.3 % (0.2-1.2); Eosinophils Percent Auto 0.1 % (0-4.4); Hematocrit 36.5 % (37.0-47.0); Hemoglobin 12.1 g/dL (12.0-15.0); Immature Granulocyte Absolute 0.14 K/mm3 (0.00-0.031); Immature Granulocyte Percent A 1.5 % (0-0.5); Immature Platelet Fraction Pct 2.2 % (0.9-11.2); Lymphocytes Absolute Auto 0.53 K/mm3 (0.9-3.2); Lymphocytes Percent Auto 5.8 % (18.3-44.2); Mean Corpuscular HGB Conc 33.2 g/dl (32-36); Mean Corpuscular Hemoglobin 30.2 pg (26-34); Mean Platelet Volume 9.3 fl (7.4-10.4); Monocytes Absolute Auto 0.7 K/mm3 (0.1-0.6); Neutrophils Absolute Auto 7.7 K/mm3 (1.3-6.7); Neutrophils Percent Auto 84.3 % (45.5-73.1); Platelet Count Result 150 k/mm3 (150-375); Red Blood Count 4.01 M/mm3 (4.2-5.4); Red Cell Distribution Width 14.3 % (11.5-14.5); White Blood Count 9.1 K/mm3 (4.5-10.0)
[2022-01-27 11:40] LABS: SARS-CoV-2 RNA PCR Positive
--- NOTE | 2022-02-04 14:42 | P.PNOB_ITS ---
OB - Triage/Final Diagnosis Visit Information Comments/Additional reasons for admission: I have assessed the risk for this patient, Sharmin Aguero, and determined that she would benefit from observation care. Evaluation Laboratory results: Laboratory Tests 01/27/22 01/27/22 01/27/22 09:31 10:47 10:47 WBC 9.1 RBC 4.01 L Hgb 12.1 Hct 36.5 L MCV 91.0 MCH 30.2 MCHC 33.2 RDW 14.3 Plt Count 150 MPV 9.3 Immature Gran % (Auto) 1.5 H Neut % (Auto) 84.3 H Lymph % (Auto) 5.8 L [place] % (Auto) 8.0 Eos % (Auto) 0.1 Baso % (Auto) 0.3 Lymph # (Auto) 0.53 L [place] # (Auto) 0.7 H Eos # (Auto) 0.0 Baso # (Auto) 0.0 Abs Immat Gran (auto) 0.14 H Absolute Neuts (auto) 7.7 H Absolute Nucleated RBC 0.0 Nucleated RBC % 0.0 % Immature Plt Fraction 2.2 Urine Color Yellow Urine Appearance Clear Urine pH 6.5 Ur Specific [place] 1.015 Urine Protein Negative Urine Glucose (UA) Negative Urine Ketones 4+ H Ur Blood (Man) Negative Urine Nitrate Negative Urine Bilirubin Negative Urine Urobilinogen 0.2 Ur Leukocyte Esterase Negative Urine RBC 0-2 Urine WBC 0-3 Ur Squamous Epith Cells Occasional Urine Bacteria Trace SARS-CoV-2 RNA (RT-PCR) Positive A Final Diagnosis (1) False labor: Code(s): O47.9 - False labor, unspecified Status: Acute
== END 2022-01-27 15:27 | disposition home or self-care (01) ==
PROVIDERS: Admitting Provider Obstetrics & Gynecology; Visit Provider Obstetrics & Gynecology
DX: O47.03 False labor before 37 completed weeks of gestation, third trimester (principal); O98.513 Other viral diseases complicating pregnancy, third trimester; U07.1 COVID-19; Z3A.30 30 weeks gestation of pregnancy
CPT/HCPCS: 36415; 81001; 85025; 85055; 87086; 87088; 87147; C9803; G0378; G0379; J7121; U0003; U0005

== ENCOUNTER 2022-03-22 01:23 | Inpatient (IN) | payer BC, SELFPAY ==
--- NOTE | 2022-03-06 14:10 | PC.NURSE ---
Verified with OR schedule and patient--C/S on 03/25/22 ar 1200
[2022-03-22] VITALS (41 sets, daily range): BP systolic 86–145; BP diastolic 44–81; PULSE 78–103; RESP 16–18; TEMP 36–36.9; O2SAT 96–100; BMI 29.5
[2022-03-22 01:10] LABS: Basophils Absolute Auto 0.1 K/mm3 (0.0-0.1); Basophils Percent Auto 0.4 % (0.2-1.2); Eosinophils Absolute Auto 0.1 K/mm3 (0-0.3); Eosinophils Percent Auto 0.7 % (0-4.4); Hematocrit 38.8 % (37.0-47.0); Immature Granulocyte Absolute 0.13 K/mm3 (0.00-0.031); Lymphocytes Absolute Auto 2.28 K/mm3 (0.9-3.2); Lymphocytes Percent Auto 17.6 % (18.3-44.2); Mean Corpuscular HGB Conc 33.5 g/dl (32-36); Mean Corpuscular Hemoglobin 29.8 pg (26-34); Mean Platelet Volume 9.7 fl (7.4-10.4); Monocytes Absolute Auto 0.9 K/mm3 (0.1-0.6); Monocytes Percent Auto 6.9 % (2.6-8.5); Neutrophils Absolute Auto 9.5 K/mm3 (1.3-6.7); Neutrophils Percent Auto 73.4 % (45.5-73.1); Platelet Count Result 181 k/mm3 (150-375); Red Blood Count 4.36 M/mm3 (4.2-5.4); Red Cell Distribution Width 14.5 % (11.5-14.5); White Blood Count 12.9 K/mm3 (4.5-10.0)
[2022-03-22] MEDS: LACTATED RINGERS 1,000 ML 125 ML IV CONT (01:30)
--- NOTE | 2022-03-22 01:30 | PM.IMHP ---
H&P: HPI History of Present Illness Date/Time: 03/22/22 01:30 Chief Complaint: Ruptured membranes at term Narrative: this is a 29-year-old conceived via IVF with prior with complaints of spontaneous vaginal delivery prior to admission. Her appears to unremarkable except for an abnormal GCT with normal 3hour. [facility] Past Medical History Medical History (Updated 03/22/22 @ 01:33 [employer] by Ed Ledesma MD) Anxiety GERD (gastroesophageal reflux disease) PIH ( induced hypertension) Vaginismus Surgical History Surgical History (Updated 04/15/20 @ 21:28 by Brian Silva MD) History of tonsillectomy Family History Family History (Updated 03/06/22 @ 13:45 by Johny Chase RN) Father Polio Heart disease Mother Fibromyalgia Grandparent Breast cancer in female Hypertension Social History Social History Smoking status: Never smoker Second hand tobacco smoke exposure: No Substance use: never Gender identity (if verbalized by the patient): Female Spiritual care concerns: No Meds Home Medications and Allergies Home Medications Medication Instructions Recorded Confirmed Type vits no.124-ferrous fum 1 tablet PO DAILY 02/20/20 03/16/20 History 27 mg iron-folic acid 800 mcg tablet ( Vitamin) nifedipine 10 mg capsule 10 mg PO Q6H PRN Cramps 03/06/22 03/06/22 History Allergies Allergy/AdvReac Type Severity Reaction Status Date / Time No Known Drug Allergies Allergy Other Verified 03/06/22 13:39 Vital Signs Vital Signs - 24 hr 03/22/22 01:24 [employer] Pulse Rate 78 Blood Pressure 112/65 Exam Const: General: cooperative, healthy appearing and comfortable Nutritional Appearance: overweight Orientation/consciousness: oriented to person, oriented to place and oriented to time HENMT: Head: normal to inspection Resp: Effort & Inspection: normal respiratory effort GI: Inspection: normal to inspection : External Female Exam: normal external appearance Speculum Exam - Vagina: normal appearance of the vagina Speculum Exam - Cervix: normal appearance of the cervix ( Clear fluid is seen with contractions every 4minutes. heart tones ) H&P: Results Labs Labs: Short CBC 03/22/22 Range/Units 01:04 [employer] WBC 12.9 H (4.5-10.0) K/mm3 Hgb 13.0 (12.0-15.0) g/dL Hct 38.8 (37.0-47.0) % Plt Count 181 (150-375) k/mm3 Assessment and Plan Assessment and plan (1) Status post primary low transverse section: Code(s): Z98.891 - History of uterine scar from previous surgery Status: Acute (2) Spontaneous rupture of membranes: Status: Acute Plan a repeat low-transverse
--- NOTE | 2022-03-22 01:31 | WPDANESEPP ---
Anes - Eval Pre Procedure Procedure: Operation Date: 03/25/22 12:00 Proposed Procedures p Repeat Section - Brian Silva MD Date/Time: 03/22/22 01:31 Surgeon: randal Pre Op Diagnosis: SROM Patient Data Age: 37 Gender: F Height: 1.68 m Weight: 83 kg Last Vital Signs Pulse 81 03/22/22 01:31 PULP PRESS TENDER BP 122/65 03/22/22 01:31 PULP PRESS TENDER Allergies Allergy/AdvReac Type Severity Reaction Status Date / Time No Known Drug Allergies Allergy Other Verified 03/06/22 13:39 Home Medications Medication Instructions Recorded Confirmed Type vits no.124-ferrous fum 1 tablet PO DAILY 02/20/20 03/16/20 History 27 mg iron-folic acid 800 mcg tablet ( Vitamin) nifedipine 10 mg capsule 10 mg PO Q6H PRN Cramps 03/06/22 03/06/22 History Laboratory Tests 03/22/22 03/22/22 03/22/22 01:04 PULP PRESS TENDER 01:04 PULP PRESS TENDER 01:04 PULP PRESS TENDER WBC 12.9 K/mm3 H K/mm3 (4.5-10.0) RBC 4.36 M/mm3 M/mm3 (4.2-5.4) Hgb 13.0 g/dL g/dL (12.0-15.0) Hct 38.8 % % (37.0-47.0) MCV 89.0 fl fl (80-100) MCH 29.8 pg pg (26-34) MCHC 33.5 g/dl g/dl (32-36) RDW 14.5 % % (11.5-14.5) Plt Count 181 k/mm3 k/mm3 (150-375) MPV 9.7 fl fl (7.4-10.4) Immature Gran % (Auto) 1.0 % H % (0-0.5) Neut % (Auto) 73.4 % H % (45.5-73.1) Lymph % (Auto) 17.6 % L % (18.3-44.2) [place] % (Auto) 6.9 % % (2.6-8.5) Eos % (Auto) 0.7 % % (0-4.4) Baso % (Auto) 0.4 % % (0.2-1.2) Lymph # (Auto) 2.28 K/mm3 K/mm3 (0.9-3.2) [place] # (Auto) 0.9 K/mm3 H K/mm3 (0.1-0.6) Eos # (Auto) 0.1 K/mm3 K/mm3 (0-0.3) Baso # (Auto) 0.1 K/mm3 K/mm3 (0.0-0.1) Abs Immat Gran (auto) 0.13 K/mm3 H K/mm3 (0.00-0.031) Absolute Neuts (auto) 9.5 K/mm3 H K/mm3 (1.3-6.7) Absolute Nucleated RBC 0.0 K/mm3 K/mm3 (0.0-0.012) Nucleated RBC % 0.0 % % (0.0-0.2) RPR Pending HIV 1&2 Ab/P24 Ag 4thGn Pending Patient hx anesthesia problems: none Family hx anesthesia problems: none Results Review: All pre-operative results and documents have been reviewed as part of the pre-operative evaluation. [facility] Past Medical History Medical History (Updated 03/22/22 @ 01:32 PULP PRESS TENDER by Ciarra De Leon CRNA) Anxiety GERD (gastroesophageal reflux disease) PIH ( induced hypertension) Vaginismus Surgical History Surgical History (Updated 04/15/20 @ 21:28 by Brian Silva MD) History of tonsillectomy Family History Family History (Updated 03/06/22 @ 13:45 by Johny Chase RN) Father Polio Heart disease Mother Fibromyalgia Grandparent Breast cancer in female Hypertension Social History Social History Smoking status: Never smoker Second hand tobacco smoke exposure: No Substance use: never Gender identity (if verbalized by the patient): Female Spiritual care concerns: No Exam Day of Procedure 03/22/22 01:31
--- NOTE | 2022-03-22 01:33 | WPDHPUPDATE1 ---
History and Physical Update Update Date/Time: 03/22/22 01:33 History and Physical has been reviewed, including an updated exam of the patient. There are NO changes in the patient's condition. Risks, benefits, and alternatives have been discussed and questions answered. Patient agrees to proceed with procedure.
--- NOTE | 2022-03-22 01:34 | LDADM ---
This patient, Sharmin Aguero, was admitted to Labor/Delivery/Recovery 120 on 03/22/22 at 01:23. Plans for labor, pain management and were discussed with patient. Patient/family oriented to hospital policies and general routines including ID bracelet, bed and alarms, visiting hours, pain management, procedures, bathroom and other care routines, personal items, smoking policy, room service/diet and guest tray routines, security routines, and visiting hours. Patient/Family are encouraged to report perceived risks to care and to ask questions if they do not understand what they are told or what they should do. See OBIX for further documentation.
[2022-03-22 02:00] LABS: HIV 1/2 Ab P24 Ag Result Negative (Negative)
[2022-03-22] MEDS: FAMOTIDINE 20 MG/2 ML VIAL (02:09)
[2022-03-22] MEDS: LACTATED RINGERS 1,000 ML 999 ML IV CONT (02:30)
[2022-03-22] MEDS: ceFAZolin 2 GM/D5W 50 ML 2 GM/50 ML BAG IVPB (02:37)
[2022-03-22] MEDS: KETOROLAC 30 MG/ML VIAL (*BKC) IV PUSH (02:58)
--- NOTE | 2022-03-22 03:23 | W.PM.PROC2 ---
Procedure Note - Detailed Date of Procedure 03/22/22 Pre-op Diagnosis SROM/Previous section Post-op Diagnosis Same Procedure Performed repeat low-transverse section Surgeon Ed Ledesma MD Anesthesia Spinal Indications 37-year-old 2 para 1 at term with spontaneous rupture membranes prior to admission Findings male infant 8lb 7oz Description of Procedure patient was admitted with spontaneous rupture membranes prior to admission. She did previous section no is 38 half weeks by good dating. After obtaining informed consent she was taken back and prepped draped in normal sterile fashion placed in the supine position. Monistat was entered in a Pfannenstiel fashion progressed through layers of fascia. The fascia was incised in upward outward fashion bilaterally. Underlying muscles sharply dissected parietal peritoneum 0 by Mirlande clamps and by sharp dissection carried superiorly and inferiorly down the bladder. Bladder blade placed. Bladder flap formed. Bladder bladder flap made and bladder blade returned. Low-transverse incision made the head delivered in the MATTHIAS position. Anterior posterior shoulder delivered spontaneously. Cord clamped x2 and cut and passed off the table excellent cry. Placenta delivered intact manually uterus delivered wrapped in a moist towel. After assuring no membranes or debris remained in the uterus, the uterus was closed with continuous running locking 0 Vicryl from lateral edge to lateral edge. This was followed by 2nd imbricating running locking Vicryl from lateral edge to. Hemostasis was assured. The ovaries and tubes appeared within normal limits in the uterus turned the abdomen. The hysterotomy incision inspected 1 last time noted be hemostatic. Was returned to the abdomen. Laps removed and accounted for. The fascia closed with continuous running Vicryl from lateral edge to midline bilaterally. Irrigation subcutaneous layer and the skin closed with 4 Monocryl and glue. QBL was 765. Patient went to recovery in satisfactory condition. Mom and baby doing fine at the time of dictation. There were no immediate complications noted at this time Estimated Blood Loss 765 Drains No Packing No Pathology None sent Complications No immediate complications Condition Stable Disposition Floor
[2022-03-22] MEDS: fentaNYL CITRATE INJ (*CRX) 100 MCG/2 ML VIAL 25 MCG IV PUSH ×4 (04:15→05:18)
[2022-03-22] MEDS: OXYTOCIN 30 UNITS/NS 500 ML 30 UNITS/500 ML BAG 125 UNITS IV CONT ×2 (05:28→07:10)
[2022-03-22] MEDS: HYDROcodone/acetaminophen (*CRX) 10-325 MG TABLET 1 TAB PO ×6 (06:02→22:02)
[2022-03-22] MEDS: METHYLERGONOVINE MALEATE 0.2 MG/ML VIAL IM (06:29)
--- NOTE | 2022-03-22 07:20 | PC.NURSE ---
Patient transferred to post room #291 via stretcher. Support person present. Oriented to unit, room, information board, rooming in, admission packet and security measures. Patient verbalizes understanding.
[2022-03-22] MEDS: DEXTROSE 5%/0.45% SOD CHL 1,000 ML 125 ML IV CONT (11:33)
[2022-03-22] MEDS: DOCUSATE SODIUM 100 MG CAPSULE PO ×2 (12:07→18:32)
[2022-03-22] MEDS: POLYSACCHARIDE IRON COMPLEX 150 MG CAPSULE PO ×2 (12:07→18:32)
[2022-03-22] MEDS: SIMETHICONE 80 MG TAB.CHEW PO ×4 (12:07→22:03)
[2022-03-22] MEDS: IBUPROFEN 600 MG TABLET PO ×2 (15:26→22:03)
[2022-03-23] MEDS: HYDROcodone/acetaminophen (*CRX) 10-325 MG TABLET 1 TAB PO ×3 (02:43→09:26)
[2022-03-23] MEDS: SIMETHICONE 80 MG TAB.CHEW PO ×7 (02:44→23:52)
[2022-03-23 03:36] VITALS: BP 94/55; PULSE 84; RESP 18; TEMP 36; O2SAT 99
[2022-03-23 04:53] LABS: Basophils Percent Auto 0.4 % (0.2-1.2); Eosinophils Absolute Auto 0.1 K/mm3 (0-0.3); Hematocrit 30.4 % (37.0-47.0); Hemoglobin 9.6 g/dL (12.0-15.0); Immature Granulocyte Percent A 0.9 % (0-0.5); Lymphocytes Absolute Auto 1.98 K/mm3 (0.9-3.2); Lymphocytes Percent Auto 18.3 % (18.3-44.2); Mean Corpuscular HGB Conc 31.6 g/dl (32-36); Mean Corpuscular Hemoglobin 29.9 pg (26-34); Mean Corpuscular Volume 94.7 fl (80-100); Monocytes Absolute Auto 0.8 K/mm3 (0.1-0.6); Monocytes Percent Auto 7.8 % (2.6-8.5); Neutrophils Absolute Auto 7.7 K/mm3 (1.3-6.7); Neutrophils Percent Auto 71.6 % (45.5-73.1); Platelet Count Result 143 k/mm3 (150-375); Red Blood Count 3.21 M/mm3 (4.2-5.4); Red Cell Distribution Width 14.8 % (11.5-14.5); White Blood Count 10.8 K/mm3 (4.5-10.0)
[2022-03-23] MEDS: IBUPROFEN 600 MG TABLET PO ×3 (06:25→19:53)
--- NOTE | 2022-03-23 07:26 | WPDANLDPN2 ---
Anes-Prog Note L&D Date/Time: 03/23/22 07:26 Comfortable throughout: section Neuraxial method: spinal Epidural/Spinal procedure site: clean & non-tender Neuro status: Neuro function grossly intact. Cardiovascular status: normal Respiratory status: normal Airway patency: baseline Mental status: baseline Post-Op hydration status: normal Vital Signs: Last Vital Signs Temp 36.0 C L 03/23/22 03:36 Pulse 84 03/23/22 03:36 Resp 18 03/23/22 03:36 BP 94/55 L 03/23/22 03:36 Pulse Ox 99 03/23/22 03:36 O2 Del Method Room Air 03/23/22 03:36 Pain score (VAS): 05/26 I/O: Intake & Output 03/22/22 03/22/22 03/23/22 15:59 23:59 07:59 Intake Total 1400 1700 400 Output Total 1100 3100 650 Balance 300 -1400 -250 Post-procedural complaints: none Patient feedback: Patient satisfied with anesthetic care.
--- NOTE | 2022-03-23 07:27 | WPDANLDNPN2 ---
Anes-Prog Note L&D-Neuraxial Date/Time: 03/23/22 07:27 Neuraxial medications: intrathecal PF morphine Opiod-related complaints: none Patient feedback: Patient satisfied with post-operative pain management.
[2022-03-23 08:05] VITALS: BP 83/44; PULSE 84; RESP 18; TEMP 36.8; O2SAT 99
[2022-03-23] MEDS: DOCUSATE SODIUM 100 MG CAPSULE PO ×2 (09:25→16:38)
[2022-03-23] MEDS: POLYSACCHARIDE IRON COMPLEX 150 MG CAPSULE PO ×2 (09:25→16:38)
[2022-03-23] MEDS: MULTIVIT/MIN/PREN/FOL AC/IRON TABLET 1 TAB PO (09:25)
--- NOTE | 2022-03-23 11:30 | PC.NURSE ---
[id number] Introductions were made, then consulted with patient to assess needs related to . Mother led the conversation with her?plans to feed?her infant and the?experience so far. Resources provided for inpatient and outpatient services using mom/baby guide. Mother voiced understanding of information and requested assistance. Infant was unwrapped with diaper check while mother eats her breakfast. Mother voiced understanding to place skin to skin after she finishes her breakfast and to call for assistance with latching after reviewing feeding cues. Reported to primary RN. [phone] Patient requested consult for latch assistance. Mother works well with her infant. Encouraged understanding of the benefits of skin to skin (unwrapping and placing vertically on her chest), responsive feeding and how to watch for early feeding signs, frequency of feeding on demand about every 8-12 times in 24 hours (every 2-3 hours), milk production, duration of feeding, signs of adequate intake/output and how to record on the feeding sheet. Reviewed positioning and ear, shoulder, hip alignment, supporting the breast, asymmetrical latch (off-center), and leading with the chin with a big open side gape. latched optimally to the right breast in cross cradle position. Education given to mother of how to visualize suck/swallow ratios and drinking at the breast which were rare. Infant was able to maintain latch without discomfort to mother for 20 minutes. Nipple care reviewed with optimal latch and good positioning. Mother offered and breastfed her infant effectively on the left breast using football positioning. Mother is also supplementing related to a history of poor milk supply initially with her first . Mother is pumping her breast to improve her milk supply. Discussed with mother the risk and benefits of supplementing with formula and bottle feeding with possible delay in her milk volume related to large blood loss and hormones. Resources used to facilitate learning were used with the tool and mom and baby guide. Mother voiced understanding of responsive feedings, stimulating with skin to skin, hand expressed colostrum, massage touch, talking to to encourage if it has been 2 -3 hours since the start of the last , to call if does not latch or there is discomfort with . Reported to the primary RN.
[2022-03-23 11:33] VITALS: BP 101/59; PULSE 83; RESP 16; O2SAT 99
[2022-03-23 12:13] LABS: Rapid Plasma Reagin Non-Reactive (NonReactive)
--- NOTE | 2022-03-23 12:50 | PM.OBPNVD ---
OB - PN: Subj Subjective Date/time seen: 03/23/22 12:50 Narrative: Pain more bothersome this afternoon. Tolerating diet. Would like circ for son. OB - PN: Obj Data Labs CBC & Chem 7: 03/23/22 02:47 Labs: Laboratory Results - last 24 hr 03/22/22 03/23/22 01:04 CONTINUOUS MINING MACHINE COAL MINER 02:47 WBC 10.8 H RBC 3.21 L Hgb 9.6 L D Hct 30.4 L MCV 94.7 D MCH 29.9 MCHC 31.6 L RDW 14.8 H Plt Count 143 L MPV 10.0 Immature Gran % (Auto) 0.9 H Neut % (Auto) 71.6 Lymph % (Auto) 18.3 [place] % (Auto) 7.8 Eos % (Auto) 1.0 Baso % (Auto) 0.4 Lymph # (Auto) 1.98 [place] # (Auto) 0.8 H Eos # (Auto) 0.1 Baso # (Auto) 0.0 Abs Immat Gran (auto) 0.10 H Absolute Neuts (auto) 7.7 H Absolute Nucleated RBC 0.0 Nucleated RBC % 0.0 RPR Non-reactive OB - PN A/P Plan Comments: A: POD#1, doing well. P: Routine care. Reviewed circ. Exam Narrative: AVSS I/O OK ABD soft, nontender, fundus firm. Incision c/d/i. EXT nontender
[2022-03-23] MEDS: oxyCODONE/ACETAMINOPHEN (*CRX) 10-325 MG TABLET 1 TAB PO ×4 (13:36→23:51)
[2022-03-23 16:30] VITALS: BP 96/58; PULSE 79; RESP 18; TEMP 36.8; O2SAT 98
[2022-03-23 20:00] VITALS: BP 98/58; PULSE 89; RESP 18; TEMP 36.6; O2SAT 100
[2022-03-24] MEDS: oxyCODONE/ACETAMINOPHEN (*CRX) 10-325 MG TABLET 1 TAB PO ×4 (04:56→14:34)
[2022-03-24] MEDS: SIMETHICONE 80 MG TAB.CHEW PO ×4 (04:56→14:34)
[2022-03-24] MEDS: IBUPROFEN 600 MG TABLET PO ×2 (04:57→11:32)
[2022-03-24] MEDS: DOCUSATE SODIUM 100 MG CAPSULE PO (08:23)
[2022-03-24] MEDS: POLYSACCHARIDE IRON COMPLEX 150 MG CAPSULE PO (08:23)
[2022-03-24] MEDS: MULTIVIT/MIN/PREN/FOL AC/IRON TABLET 1 TAB PO (08:23)
[2022-03-24 09:15] VITALS: BP 93/62; PULSE 77; RESP 16; TEMP 37.3; O2SAT 100
--- NOTE | 2022-03-24 10:46 | PC.NURSE ---
1015 - Consulted with patient to see how is going. Paitent is sleeping. is sleeping in bassinet with last feeding at 0800. Will check back later.
--- NOTE | 2022-03-24 11:56 | PC.NURSE ---
[phone] RN entered the room due to RN calling for a consult. RN entered the room and father of baby is holding and rocking infant. RN encouraged infant to be placed skin to skin and feeding cues were then stimulated. demonstrated looking for the breast, then falls asleep and makes no efforts to open his mouth to breastfeed. Mother is breast and bottle feeding. Mother leads the conversation with they did not have success latching to the breast last night. Infant soiled a diaper. Parents voiced they will call for assistance after the diaper is changed. Reported to the primary RN.
--- NOTE | 2022-03-24 12:34 | PC.NURSE ---
[id number] RN called to the room for assistance. Mother works well with her with encouragement, education and assistance. Encouraged understanding of the benefits of skin to skin (unwrapping infant and placing vertically on her chest), responsive feeding and how to watch for early feeding signs, frequency of feeding on demand about every 8-12 times in 24 hours (every 2-3 hours), milk production, duration of feeding, signs of adequate intake/output and how to record on the feeding sheet. Reviewed positioning and ear, shoulder, hip alignment, supporting the breast, asymmetrical latch (off-center), and leading with the chin with a big open side gape. The first attempt with a big, wide open mouth using football positioning on the right breast mother verbally responds in pain. Infant is detached. Mother is encouraged to relax her body, hand, sandwich holding breast, and not pull the breast away from the when opens wide to latch. Mother relaxes a bit and we attempt a few more times until latches optimally to the right breast in football position. Education given to mother of how to visualize suck/swallow ratios and listening for drinking at the breast. was able to maintain latch without discomfort to mother that she can tell. When RN asked mother if the nursing felt like pinching, biting, tugging, or sucking she states she isn't sure. Mothers body is not squirming and is somewhat relaxed for an anxious mother. Father of baby assist with keeping the infant engaged in . Mother stimulates engagement when infant pauses at the breast and doesn't start nursing again. Nipple care reviewed with optimal latch and good positioning. Mother voiced understanding of responsive feedings, stimulating with skin to skin, massage touch, talking to infant to encourage if it has been 2 -3 hours since the start of the last , to call if infant does not latch or there is discomfort with . Plan is made verbally with parents to call for assistance to offer the other breast to the . Reported to the primary RN.
--- NOTE | 2022-03-24 13:27 | PM.OBPNVD ---
OB - PN: Subj Subjective Date/time seen: 03/24/22 13:27 Narrative: Pain OK. Tolerating diet. Would like to go home. OB - PN: Obj Data Labs CBC & Chem 7: 03/23/22 02:47 OB - PN A/P Assessment and Plan (1) Spontaneous rupture of membranes: Status: Acute (2) delivery delivered: Code(s): O82 - Encounter for delivery without indication Status: Acute (3) Term delivered: Code(s): O80 - Encounter for full-term uncomplicated delivery Status: Acute Plan Comments: A: POD#2, doing well. P: Home to f/u 4 weeks. Time Spent With Patient Time with patient: 15 - 25 minutes Exam Narrative: AVSS ABD soft, nontender, fundus firm. Incision c/d/i. EXT nontender
--- NOTE | 2022-03-24 13:33 | PM.OBDSVD ---
DS: Admitting Diagnosis Discharge Date 03/24/22 Admitting Diagnosis IUP at term SROM History of DS: Discharge Diagnosis Discharge Diagnosis (1) Term delivered: Code(s): O80 - Encounter for full-term uncomplicated delivery Status: Acute (2) delivery delivered: Code(s): O82 - Encounter for delivery without indication Status: Acute (3) Spontaneous rupture of membranes: Status: Acute OB - DS: Summary OB Procedures : None OB Procedures Intrapartum: OB Procedures: : None Peripartum Data Procedures: Procedures Operation Date: 03/22/22 02:30 Actual Procedure Side Surgeon p Section Ed Ledesma MD Operation Date: 03/25/22 12:00 <No data on this case meets the specified criteria> Time Spent with Patient Time attestation: Total time spent providing and/or coordinating discharge services: Discharge Plan Discharge Attending physician on discharge: Brian Silva Discharging Clinician: Brian Silva Patient Disposition: Home, Self-Care Activity: may shower, may drive after 2 weeks and pelvic rest Diet: as tolerated Wound Care Instructions: incision open to air Discharge Instructions: Call or return if temperature above 100.4? F, increased abdominal pain, increased vaginal bleeding or any new problems. Stand Alone Forms: General Discharge Information Follow-up/Referrals: Brian Silva MD [Physician] - 4 Weeks Discharge Medications: New ferrous sulfate 325 mg (65 mg iron) tablet 325 mg PO DAILY Qty: 30 0RF ibuprofen 600 mg tablet 600 mg PO Q6H PRN (Reason: cramps) Qty: 30 0RF oxycodone-acetaminophen [Percocet] 10-325 mg tablet 1 tablet PO Q4-6H PRN (Reason: pain) Qty: 30 0RF Continued Vitamin 27 mg iron- 800 mcg Tablet 1 tablet PO DAILY Discontinued nifedipine 10 mg Capsule 10 mg PO Q6H PRN (Reason: Cramps) Rx Instructions: as need for labor Date of admission: 03/22/22 01:23 CDT Primary Care Provider: Iban,Kathi Admitting Provider: Brian Silva Attending physician on admission: Brian Silva Condition: Stable
--- NOTE | 2022-03-24 14:37 | PC.NURSE ---
[id number] Consulted with mother to see how the session went and what her nipple looked like afterwards. There was no misshaped nipple. Mother's nipples naturally look oblong and father of baby thought it was pinched. Mother denied pain with . Mother latched her independently to the left breast and denies pain with effective . Parents voice understanding of visualizing suck/swallow ratios and hearing drinking at the breast. Nipple care reviewed with optimal latch and good positioning. Parents voiced understanding of responsive feedings, stimulating with skin to skin, massage touch, talking to infant to encourage if it has been 2 -3 hours since the start of the last , to call if does not latch or there is discomfort with . After 10-15 minutes mother detached from the breast so father of baby can supplement with formula. Reported to the primary RN.
[2022-03-26 11:26] VITALS: BP 110/54; PULSE 84; RESP 18; TEMP 36.8; O2SAT 98
== END 2022-03-24 16:25 | disposition home or self-care (01) | DRG 788 ==
LOC: ANHLDR 01:50 → ANHOB2 07:24
PROVIDERS: Admitting Provider Obstetrics & Gynecology; PCP Physician Assistant; Visit Provider Obstetrics & Gynecology
PROC: 10D00Z1 Extraction of Products of Conception, Low, Open Approach (ICD-10-PCS; CPT 59514; principal; 2022-03-22 02:30)
DX: O34.211 Maternal care for low transverse scar from previous cesarean delivery (principal); Z37.0 Single live birth; Z3A.38 38 weeks gestation of pregnancy; O69.81X0 Labor and delivery complicated by cord around neck, without compression, not applicable or unspecified; O36.8330 Maternal care for abnormalities of the fetal heart rate or rhythm, third trimester, not applicable or unspecified
CPT/HCPCS: 36415; 85025; 86592; 86703; 86850; 86900; 86901; A9270; G0432; J0131; J0456; J0690; J1200; J1885; J2210; J2274; J2370; J2405; J2590; J3010; J7120

== ENCOUNTER 2024-01-31 12:09 | Outpatient (RCR) | payer BC, SELFPAY ==
[2024-01-31 13:35] VITALS: BP 110/56; PULSE 86
== END 2024-03-20 09:50 | disposition home or self-care (01) ==
LOC: ANHOBOP 12:09
PROVIDERS: PCP Physician Assistant; Visit Provider Obstetrics & Gynecology
DX: O36.8190 Decreased fetal movements, unspecified trimester, not applicable or unspecified (principal)
CPT/HCPCS: 59025

== ENCOUNTER 2024-02-12 09:19 | Outpatient (CLI) | payer BC, SELFPAY ==
[2024-02-12 09:41] LABS: Basophils Percent Auto 0.3 % (0.2-1.2); Eosinophils Absolute Auto 0.1 K/mm3 (0-0.3); Eosinophils Percent Auto 0.6 % (0-4.4); Hematocrit 35.3 % (37.0-47.0); Hemoglobin 10.7 g/dL (12.0-15.0); Immature Granulocyte Absolute 0.21 K/mm3 (0.00-0.031); Immature Platelet Fraction Pct 3.5 % (0.9-11.2); Lymphocytes Absolute Auto 1.44 K/mm3 (0.9-3.2); Lymphocytes Percent Auto 13.9 % (18.3-44.2); Mean Corpuscular HGB Conc 30.3 g/dl (32-36); Mean Corpuscular Hemoglobin 26.4 pg (26-34); Mean Corpuscular Volume 86.9 fl (80-100); Monocytes Absolute Auto 0.8 K/mm3 (0.1-0.6); Monocytes Percent Auto 7.4 % (2.6-8.5); Neutrophils Absolute Auto 7.8 K/mm3 (1.3-6.7); Neutrophils Percent Auto 75.8 % (45.5-73.1); Platelet Count Result 201 k/mm3 (150-375); Red Blood Count 4.06 M/mm3 (4.2-5.4); Red Cell Distribution Width 19.1 % (11.5-14.5); White Blood Count 10.3 K/mm3 (4.5-10.0)
[2024-02-12 10:34] LABS: HIV 1/2 Ab P24 Ag Result Negative (Negative)
[2024-02-12 11:23] LABS: Rapid Plasma Reagin Non-Reactive (NonReactive)
== END 2024-02-12 09:20 | disposition home or self-care (01) ==
PROVIDERS: PCP Physician Assistant; Visit Provider Obstetrics & Gynecology
DX: Z01.812 Encounter for preprocedural laboratory examination (principal)
CPT/HCPCS: 36415; 85025; 85055; 86592; 86703; 86850; 86900; 86901; G0432

== ENCOUNTER 2024-02-14 09:56 | Inpatient (IN) | payer BC, SELFPAY ==
[2024-02-14] VITALS (65 sets, daily range): BP systolic 55–142; BP diastolic 45–98; PULSE 56–163; RESP 12–19; TEMP 35.7–36.8; O2SAT 99–100
--- NOTE | 2024-02-14 08:57 | PM.IMHP ---
H&P: HPI History of Present Illness Date/Time: 02/14/24 08:57 Chief Complaint: Here for C section Narrative: 38 y/o at 39 2/7 weeks here for repeat . She has had two prior cesareans. She has mild polyhydramnios, EFW in 90th percentile. GBS pos. Review of Systems Review of Systems: All systems reviewed & are unremarkable except as noted in HPI and below PMFSH Past Medical History Medical History (Updated 02/14/24 @ 09:00 by Brian Silva MD) Anxiety GERD (gastroesophageal reflux disease) PIH ( induced hypertension) Vaginismus Surgical History Surgical History (Updated 02/14/24 @ 09:00 by Brian Silva MD) History of tonsillectomy Family History Family History Father Polio Heart disease Mother Fibromyalgia Grandparent Breast cancer in female Hypertension Social History Social History Smoking status: Never smoker Second hand tobacco smoke exposure: No Substance use: never Lack of Transportation: No Lack of Food: Never True Current Housing: I Have Housing Concerned About Future Housing: No Difficulty Paying Gas/Electric Bills: No Difficulty Paying for Meds: No Currently Unemployed: No Education: Bachelor's Degree Difficulty w/ Childcare or Family Care: No Gender identity (if verbalized by the patient): Female Spiritual care concerns: No Meds Home Medications and Allergies Home Medications Medication Instructions Recorded Confirmed Type vits no.124-ferrous fum 1 tablet PO DAILY 02/20/20 03/16/20 History 27 mg iron-folic acid 800 mcg tablet ( Vitamin) ferrous sulfate 325 mg (65 mg 325 mg PO DAILY #30 tabs 03/24/22 Rx iron) tablet ibuprofen 600 mg tablet 600 mg PO Q6H PRN cramps #30 tabs 03/24/22 Rx oxycodone-acetaminophen 10 mg-325 1 tablet PO Q4-6H PRN pain #30 tabs 03/24/22 Rx mg tablet (Percocet) Allergies Allergy/AdvReac Type Severity Reaction Status Date / Time No Known Drug Allergies Allergy Other Verified 03/06/22 13:39 Exam Const: Orientation/consciousness: patient oriented x3 Other: Well-developed, well-nourished female in no acute distress. Neck: Thyroid: thyroid normal Lymphatic: no lymphadenopathy noted (in neck, axilla or inguinal nodes) Resp: Effort & Inspection: normal respiratory effort Auscultation: clear to auscultation bilaterally Cardio: Rate: regular rate Rhythm: regular rhythm Heart sounds: S1 normal heart sound present and S2 normal heart sound present GI: Other: ABD: Soft, nontender, nondistended, gravid. FH 41 cm. Vertex. FHR 150 bpm. No guarding or rebound tenderness. No hepatosplenomegaly. : General: Yes no CVA tenderness Other: Deferred. Back/Spine/Pelvis: Back: no CVA tenderness Skin: General skin exam: normal color and no rashes or lesions noted Neuro: General: patient oriented x3 Extrem: Other: Extremities: nontender with no edema Psych: Mental Status: mental status grossly normal Affect: normal affect Assessment and Plan Assessment and plan (1) History of delivery: Code(s): Z98.891 - History of uterine scar from previous surgery Status: Acute Assessment and Plan: A: IUP at 39 2/7 weeks with prior , mild polyhydramnios, GBS pos. P: She desires repeat . She understands risks of surgery to include risks of anesthesia, risks of pain, infection, bleeding, blood products, thromboembolic phenomena and damage to adjacent structures such as bowel, bladder, ureters, blood vessels and nerves. She understands all these risks and elects to proceed with surgery. (2) Term : Code(s): Z34.90 - Encounter for supervision of normal , unspecified, unspecified trimester Status: Acute (3) Polyhydramnios affecting : Code(
[2024-02-14] MEDS: ACETAMINOPHEN 500 MG TABLET 1000 MG PO (10:22)
[2024-02-14] MEDS: LACTATED RINGERS 1,000 ML 125 ML IV CONT ×2 (10:40→11:30)
[2024-02-14] MEDS: FAMOTIDINE 20 MG/2 ML VIAL IV PUSH (11:45)
[2024-02-14] MEDS: ONDANSETRON INJ 4 MG/2 ML VIAL IV PUSH (11:46)
--- NOTE | 2024-02-14 11:53 | LDADM ---
This patient, Sharmin Aguero, was admitted to Labor/Delivery/Recovery 119 on 02/14/24 at 09:56. Plans for labor, pain management and were discussed with patient. Patient/family oriented to hospital policies and general routines including ID bracelet, bed and alarms, visiting hours, pain management, procedures, bathroom and other care routines, personal items, smoking policy, room service/diet and guest tray routines, security routines, and visiting hours. Patient/Family are encouraged to report perceived risks to care and to ask questions if they do not understand what they are told or what they should do. See OBIX for further documentation.
--- NOTE | 2024-02-14 12:05 | WPDHPUPDATE1 ---
History and Physical Update Update Date/Time: 02/14/24 12:05 History and Physical has been reviewed, including an updated exam of the patient. There are NO changes in the patient's condition. Risks, benefits, and alternatives have been discussed and questions answered. Patient agrees to proceed with procedure.
--- NOTE | 2024-02-14 12:09 | WPDANESEPPF ---
Anes - Initial Pre Proc Eval Procedure: Operation Date: 02/14/24 12:00 Proposed Procedures p Repeat Section - Brian Silva MD Date/Time: 02/14/24 12:09 Surgeon: Brian Silva MD Pre Op Diagnosis: C/S Patient Data Age: 38 Gender: F Height: 1.65 m Weight: 82 kg Last Vital Signs Pulse 81 02/14/24 11:12 BP 124/68 02/14/24 11:12 Allergies Allergy/AdvReac Type Severity Reaction Status Date / Time No Known Drug Allergies Allergy Other Verified 03/06/22 13:39 Home Medications Medication Instructions Recorded Confirmed Type vits no.124-ferrous fum 1 tablet PO DAILY 02/20/20 02/14/24 History 27 mg iron-folic acid 800 mcg tablet ( Vitamin) ferrous sulfate 325 mg (65 mg 325 mg PO DAILY #30 tabs 03/24/22 02/14/24 Rx iron) tablet Patient hx anesthesia problems: other (Pt reports that she was told she was sensitive to anesthetics in the past. Also apparent shaking w prev spinal anesthetic. ) Family hx anesthesia problems: none Results Review: All pre-operative results and documents have been reviewed as part of the pre-operative evaluation. [facility] Past Medical History Medical History Anxiety GERD (gastroesophageal reflux disease) PIH ( induced hypertension) Vaginismus Surgical History Surgical History History of tonsillectomy Family History Family History Father Polio Heart disease Mother Fibromyalgia Grandparent Breast cancer in female Hypertension Social History Social History Smoking status: Never smoker Second hand tobacco smoke exposure: No Substance use: never Do You Feel Safe in your Home?: Yes Lack of Transportation: No Lack of Food: Never True Current Housing: I Have Housing Concerned About Future Housing: No Difficulty Paying Gas/Electric Bills: No Difficulty Paying for Meds: No Currently Unemployed: No Education: High School Diploma/GED Difficulty w/ Childcare or Family Care: No Gender identity (if verbalized by the patient): Female Spiritual care concerns: No Anes - Eval Final PreProcedure Day of Procedure 02/14/24 12:09 Patient weight: overweight Heart: regular rate and rhythm Lungs: clear to auscultation Airway: Mallampati scale class II Neurological: alert and oriented Last oral intake: >/= 8 hours ASA classification: II Emergent: no Anesthetic plan: proceed Anesthesia type and monitoring: regional spinal and standard monitoring Results Review: All pre-operative results and documents have been reviewed as part of the pre-operative evaluation. Informed Consent: The patient's anesthetic plan and its attendant risks and benefits were discussed with the patient/family/POA. Questions were solicited and answers provided to the satisfaction of the patient/family/POA.
[2024-02-14] MEDS: ceFAZolin 2 GM/D5W 50 ML 2 GM/50 ML BAG IVPB (12:35)
--- NOTE | 2024-02-14 13:38 | P.PCNOB_ITS ---
OB - Delivery Note Procedure Delivery date: 02/14/24 Pre-op diagnosis: Previous Delivery Post-op Diagnosis: Same Induction method: None Delivery monitor: External FHT and External Uterine Procedure Performed: Repeat Surgeon: Brian Silva MD Anesthesia type: Spinal Description of Procedure/Findings: The patient was taken to the operating room where she was prepared and draped in the usual sterile fashion in dorsal supine position with a leftward tilt. She received cefazolin preoperatively. Spinal anesthesia was found to be adequate. A Pfannenstiel skin incision was made along the previous scar line and was carried through to the underlying layer of the fascia. The fascia was incised in the midline and the incision was extended laterally. The fascia was dissected free of the underlying rectus muscles. The rectus muscles were in the midline. The peritoneum was identified, tented up and entered sharply. The peritoneal incision was extended superiorly and inferiorly with good visualization of the bladder. The bladder blade was placed. The vesicouterine peritoneum was identified, tented up and entered sharply. The incision was extended laterally and the bladder flap was developed. The bladder blade was replaced. The uterus was then incised sharply in a transverse fashion along the lower uterine segment. The incision was extended laterally. The 's head was delivered atraumatically to the sterile field, followed by the body. The nose and mouth were bulb suctioned. After a delay, the cord was clamped and cut. The infant was handed off the field. Cord blood was collected. The placenta was removed manually and was passed off the field. The uterus was exteriorized and cleared of all clots and debris. The uterine incision was reapproximated using 0 Monocryl in a running, locked fashion. Excellent hemostasis resulted as did excellent reapproximation of the normal anatomy. The uterus was returned the abdomen. The pelvis was irrigated copiously with warmed normal saline. Rigorous hemostasis was assured. The fascial layer was reapproximated using 0 Vicryl in a running fashion. The skin was closed with a running, subcuticular stitch of 4 0 Vicryl. Dermaflex was applied externally. Sponge, lap, needle and instrument counts were correct. The patient was taken to the recovery room in stable condition. The went to the nursery in stable condition. I was present and scrubbed the entire p rocedure. Specimen: Yes (cord blood) Estimated Blood Loss: 790 Drains: Yes (phillips) Packing: No Pathology: None sent Complications: None Condition: Stable Disposition: PACU [facility] Date of : 02/14/24 Time of : 13:07 Gestational Age by Date: 39 Infant gender: Male Weight (pounds): 9 Weight (ounces): 9 presentation: vertex Placenta delivery description: Manual Removal and Normal Configuration Cord Vessel Description: 3 Vessels and Delayed Cord Clamping score one minute: 8 score five minutes: 9
--- NOTE | 2024-02-14 13:40 | PM.OBDSVD ---
DS: Admitting Diagnosis Discharge Date 02/16/24 Admitting Diagnosis IUP at 39 2/7 weeks Prior GBS colonization Mild polyhydramnios DS: Discharge Diagnosis Discharge Diagnosis (1) delivery delivered: Code(s): O82 - Encounter for delivery without indication Status: Acute (2) GBS (group B Streptococcus carrier), +RV culture, currently : Code(s): O99.820 - Streptococcus B carrier state complicating Status: Acute (3) Polyhydramnios affecting : Code(s): O40.9XX0 - Polyhydramnios, unspecified trimester, not applicable or unspecified Status: Acute OB - DS: Summary OB Procedures : None OB Procedures Intrapartum: and GBS prophylaxis OB Procedures: : None Peripartum Data Procedures: Procedures Operation Date: 02/14/24 12:00 <No data on this case meets the specified criteria> Time Spent with Patient Time attestation: Total time spent providing and/or coordinating discharge services: Discharge Plan Discharge Attending physician on discharge: Brian Silva Discharging Clinician: Brian Silva Patient Disposition: Home, Self-Care Activity: may shower, may drive after 2 weeks and pelvic rest Diet: regular Wound Care Instructions: incision open to air Discharge Instructions: Call or return if temperature above 100.4? F, increased abdominal pain, increased vaginal bleeding or any new problems. Stand Alone Forms: General Discharge Information Follow-up/Referrals: Brian Silva MD [Physician] - 4 Weeks Discharge Medications: New ibuprofen 600 mg tablet 600 mg PO Q6H PRN (Reason: cramps) Qty: 30 0RF oxycodone-acetaminophen [Percocet] 5-325 mg tablet 1 - 2 tablet PO Q6H PRN (Reason: pain) Qty: 30 0RF Continued Vitamin 27 mg iron- 800 mcg Tablet 1 tablet PO DAILY Discontinued ferrous sulfate 325 mg (65 mg iron) tablet 325 mg PO DAILY Qty: 30 0RF Date of admission: 02/14/24 09:56 Primary Care Provider: Iban,Kathi Admitting Provider: Brian Silva Attending physician on admission: Brian Silva Condition: Stable
[2024-02-14] MEDS: SIMETHICONE 80 MG TAB.CHEW PO ×3 (14:02→20:49)
[2024-02-14] MEDS: OXYTOCIN 30 UNITS/NS 500 ML 30 UNITS/500 ML BAG 125 UNITS IV CONT (14:22)
[2024-02-14] MEDS: LIDOCAINE 5% PATCH 1 PATCH TRANSDERM (14:27)
--- NOTE | 2024-02-14 16:00 | PC.NURSE ---
Patient transferred to post room #297 via stretcher. Support person present. Oriented to unit, room, information board, rooming in, admission packet and security measures. Patient verbalizes understanding.
[2024-02-14] MEDS: ACETAMINOPHEN 325 MG TABLET 650 MG PO ×2 (16:50→23:11)
[2024-02-14] MEDS: KETOROLAC 15 MG/ML VIAL (*BKC) IV PUSH ×2 (16:50→23:11)
--- NOTE | 2024-02-14 17:30 | PC.NURSE ---
Introductions were made, then consulted with patient to assess needs related to . Mother led the conversation with her?plans to feed?her infant and the?experience so far. Mother states that she breastfed her other 2 children successfully and plans to exclusively breastfeed. Encouraged understanding of the benefits of skin to skin, stimulating with massage touch, changing positions to encourage wakefulness, how to watch for early feeding cues, responsive feeding, feeding on demand (aiming for 8-12 times in 24 hours, about every 2-3 hours), milk production, building/maintaining a milk supply, duration of feeding, signs of adequate intake/output and how to record on the feeding sheet. Mother works well with her infant with encouragement. She had surgery today and is in slight pain and needs a little assistance when moving infants positions. Reviewed positioning and ear, shoulder, hip alignment, supporting the breast to facilitate a deep latch, asymmetrical latch (off-center), leading with the chin with a big, open, wide gape and body close to mother. Infant latched optimally to the left breast in laid-back position. Maximum assistance provided. Education given to the mother of how to visualize the suckling (with good rocking jaw motion), swallows (dropping of the lower jaw) and how to listen for drinking at the breast (the ka sound). was [able/unable] to maintain latch without pain to mother protecting the nipple with optimal positioning and latching. Reviewed comfort measures of healing with a warm, wet washcloth to rinse breast, then leave open to air-dry, good handwashing when or touching the breast/nipples to prevent infection. Mother voiced understanding of skin to skin, stimulating with massage touch, responsive feedings, hand expressed colostrum, talking to infant to encourage if it has been 2 -2.5 hours since the start of the last , to call if does not latch, or if there is discomfort with . Communication board updated with contact information. Parents voiced understanding of information, demonstrated learning and will call if there is a request for assistance. Reported to the Primary RN.
[2024-02-14] MEDS: DEXTROSE 5%/0.45% SOD CHL 1,000 ML 125 ML IV CONT (17:51)
--- NOTE | 2024-02-14 20:09 | PC.NURSE ---
1900. Mom reports she has nursed for 60min and he is still showing hunger signs. She requests some formula at this time. Reviewed with mom the process of milk production and how milk transitions from colostrum to full volume milk in stages. Reviewed with mom paced bottle feeding and using a slow flow nipple. Dad fed infant 8 ml of formula, baby tolerated well. Mom and dad verbalized understanding of teaching, and mom knows she can always call out for help with latching infant to the breast if that is her preference.
[2024-02-14] MEDS: DOCUSATE SODIUM 100 MG CAPSULE PO (20:47)
[2024-02-15] MEDS: oxyCODONE HCL (*CRX) 5 MG TAB IR 10 MG PO ×2 (04:29→22:38)
[2024-02-15 04:45] VITALS: BP 111/62; PULSE 90; RESP 18; TEMP 37; O2SAT 98
[2024-02-15] MEDS: ACETAMINOPHEN 325 MG TABLET 650 MG PO ×4 (05:02→23:30)
[2024-02-15] MEDS: KETOROLAC 15 MG/ML VIAL (*BKC) IV PUSH ×2 (05:03→11:14)
[2024-02-15 05:45] LABS: Basophils Percent Auto 0.3 % (0.2-1.2); Eosinophils Absolute Auto 0.1 K/mm3 (0-0.3); Eosinophils Percent Auto 0.5 % (0-4.4); Hematocrit 33.1 % (37.0-47.0); Hemoglobin 10.3 g/dL (12.0-15.0); Immature Granulocyte Percent A 0.8 % (0-0.5); Immature Platelet Fraction Pct 3.2 % (0.9-11.2); Lymphocytes Absolute Auto 1.21 K/mm3 (0.9-3.2); Lymphocytes Percent Auto 10.1 % (18.3-44.2); Mean Corpuscular HGB Conc 31.1 g/dl (32-36); Mean Corpuscular Hemoglobin 27.2 pg (26-34); Mean Corpuscular Volume 87.3 fl (80-100); Mean Platelet Volume 11.2 fl (7.4-10.4); Monocytes Absolute Auto 0.8 K/mm3 (0.1-0.6); Monocytes Percent Auto 6.5 % (2.6-8.5); Neutrophils Absolute Auto 9.8 K/mm3 (1.3-6.7); Neutrophils Percent Auto 81.8 % (45.5-73.1); Platelet Count Result 137 k/mm3 (150-375); Red Blood Count 3.79 M/mm3 (4.2-5.4); Red Cell Distribution Width 19.7 % (11.5-14.5)
[2024-02-15 06:38] LABS: Large Platelets Present; Platelet Estimate Adequate (Adequate); Schistocytes None Seen
[2024-02-15 07:30] VITALS: BP 98/59; PULSE 76; RESP 18; TEMP 36.7; O2SAT 99
[2024-02-15] MEDS: DOCUSATE SODIUM 100 MG CAPSULE PO ×2 (08:19→17:18)
[2024-02-15] MEDS: SIMETHICONE 80 MG TAB.CHEW PO ×3 (08:19→17:19)
[2024-02-15] MEDS: MULTIVIT/MIN/PREN/FOL AC/IRON TABLET 1 TAB PO (08:19)
[2024-02-15 12:10] VITALS: BP 104/58; PULSE 83; RESP 18; TEMP 36.5; O2SAT 100
--- NOTE | 2024-02-15 12:19 | PM.OBPNVD ---
OB - PN: Subj Subjective Date/time seen: 02/15/24 12:19 Narrative: Pain OK. Tolerating diet. Would like circumcision for son. OB - PN: Obj Data Labs 02/15/24 05:19 Labs: Laboratory Results - last 24 hr 02/15/24 05:19 WBC 12.0 H RBC 3.79 L Hgb 10.3 L Hct 33.1 L MCV 87.3 MCH 27.2 MCHC 31.1 L RDW 19.7 H Plt Count 137 L MPV 11.2 H Immature Gran % (Auto) 0.8 H Neut % (Auto) 81.8 H Lymph % (Auto) 10.1 L [place] % (Auto) 6.5 Eos % (Auto) 0.5 Baso % (Auto) 0.3 Lymph # (Auto) 1.21 [place] # (Auto) 0.8 H Eos # (Auto) 0.1 Baso # (Auto) 0.0 Abs Immat Gran (auto) 0.10 H Absolute Neuts (auto) 9.8 H Absolute Nucleated RBC 0.000 Nucleated RBC % 0.0 Platelet Estimate Adequate Large Platelets Present % Immature Plt Fraction 3.2 Schistocytes None seen OB - PN A/P Plan day: 1 Comments: A: POD#1, doing well. P: Reviewed circ. Routine care. Exam Narrative: AVSS I/O OK ABD soft, nontender, fundus firm. Incision c/d/i. EXT nontender
[2024-02-15] MEDS: oxyCODONE HCL (*CRX) 5 MG TAB IR PO (14:14)
--- NOTE | 2024-02-15 14:45 | WPDANLDPN2 ---
Anes-Prog Note L&D Date/Time: 02/15/24 14:45 Comfortable throughout: section Neuraxial method: spinal Epidural/Spinal procedure site: clean & non-tender Neuro status: Neuro function grossly intact. Cardiovascular status: normal Respiratory status: normal Airway patency: baseline Mental status: baseline Post-Op hydration status: normal Vital Signs: Last Vital Signs Temp 97.7 F 02/15/24 12:10 Pulse 83 02/15/24 12:10 Resp 18 02/15/24 12:10 BP 104/58 L 02/15/24 12:10 Pulse Ox 100 02/15/24 12:10 O2 Del Method Room Air 02/15/24 07:55 Pain score (VAS): 0/10 I/O: Intake & Output 02/14/24 02/15/24 02/15/24 23:59 07:59 15:59 Intake Total 600 550 240 Output Total 650 1400 Balance -50 -850 240 Post-procedural complaints: none Patient feedback: Patient satisfied with anesthetic care.
--- NOTE | 2024-02-15 14:45 | WPDANLDNPN2 ---
Anes-Prog Note L&D-Neuraxial Date/Time: 02/15/24 14:45 Neuraxial medications: intrathecal PF morphine Opiod-related complaints: none Patient feedback: Patient satisfied with post-operative pain management.
--- NOTE | 2024-02-15 16:09 | PC.NURSE ---
1600. Mother verbalizes she is able to independently latch infant with appropriate positioning and alignment. She denies any nipple discomfort and is responsively . latched optimally to the right breast in cross cradle position. Education given to the mother of how to visualize the suckling (with good rocking jaw motion) swallows (dropping of the lower jaw) and how to listen for drinking at the breast (the ka sound). The infant was able to maintain latch without discomfort to m Mother declines any additional assistance or education at this time. Mother is encouraged to call for assistance if her doesn?t latch, pain with latching, questions or concerns. Mother voiced understanding of information shared along with the mom/baby guide for an additional resource. Reported to the Primary RN.
[2024-02-15] MEDS: IBUPROFEN 600 MG TABLET PO ×2 (17:18→23:30)
[2024-02-15 20:38] VITALS: BP 108/66; PULSE 81; RESP 18; TEMP 36.9; O2SAT 97
[2024-02-16] MEDS: IBUPROFEN 600 MG TABLET PO ×2 (05:50→11:52)
[2024-02-16] MEDS: ACETAMINOPHEN 325 MG TABLET 650 MG PO ×2 (05:50→11:52)
[2024-02-16] MEDS: MULTIVIT/MIN/PREN/FOL AC/IRON TABLET 1 TAB PO (07:14)
[2024-02-16] MEDS: DOCUSATE SODIUM 100 MG CAPSULE PO (07:14)
[2024-02-16] MEDS: SIMETHICONE 80 MG TAB.CHEW PO ×2 (07:14→11:52)
[2024-02-16] MEDS: oxyCODONE HCL (*CRX) 5 MG TAB IR 10 MG PO ×2 (07:15→13:12)
[2024-02-16 08:10] VITALS: BP 104/60; PULSE 80; RESP 16; TEMP 36.4; O2SAT 100
--- NOTE | 2024-02-16 08:58 | PM.OBPNVD ---
OB - PN: Subj Subjective Date/time seen: 02/16/24 08:58 Narrative: Pain OK. Tolerating diet. Would like to go home. OB - PN: Obj Data Labs 02/15/24 05:19 OB - PN A/P Plan day: 2 Comments: A: POD#2, doing well. P: Home to f/u 4 weeks. Exam Narrative: AVSS ABD soft, nontender, fundus firm. Incision c/d/i. EXT nontender
--- NOTE | 2024-02-16 15:16 | PC.NURSE ---
Consulted with mother concerning needs and she shared her ability to independently latch infant optimally without pain. Mother is feeding appropriately for growth of and understands stimulating to eat if needed. Infant has had appropriate feedings in the last 24 hours meets the outcomes for weight, output, blood sugar and jaundice at this time. Reinforced understanding of milk production, transition of milk, signs of adequate intake, transition of stool, prevention/relief of engorgement, plugged ducts, mastitis, responsive watching for feeding cues, the different methods of stimulating to breastfeed 1-3 hours after the start of the last feeding, community resources, and when to call a provider using the resource of the feeding sheet along with the mom and baby guide. Mother voiced understanding of the information shared, is confident to continue effectively her infant at home, when to call for assistance, denies any additional assistance or education at this time. Reported to the Primary RN.
[2024-02-17 15:59] VITALS: BP 106/64; PULSE 82; RESP 18; TEMP 36.4; O2SAT 99
== END 2024-02-16 16:00 | disposition home or self-care (01) | DRG 788 ==
LOC: ANHLDR 13:41 → ANHOB2 16:36
PROVIDERS: Admitting Provider Obstetrics & Gynecology; PCP Physician Assistant; Visit Provider Obstetrics & Gynecology
PROC: 10D00Z1 Extraction of Products of Conception, Low, Open Approach (ICD-10-PCS; CPT 59514; principal; 2024-02-14 12:00)
DX: O34.219 Maternal care for unspecified type scar from previous cesarean delivery (principal); O99.824 Streptococcus B carrier state complicating childbirth; O40.3XX0 Polyhydramnios, third trimester, not applicable or unspecified; Z3A.39 39 weeks gestation of pregnancy; Z37.0 Single live birth
CPT/HCPCS: 36415; 85025; 85055; A9270; J0690; J1885; J2274; J2405; J2590; J7120